=== PATIENT | male | born 1965 | race Caucasian/White ===

== ENCOUNTER 2017-10-11 23:17 | Inpatient (IN) | payer BC, MEDICARE ==
[~2017-10-11] VITALS: Ht 182.9 cm; Wt 106.0 kg
[2017-10-12] VITALS (14 sets, daily range): BP systolic 146–198; BP diastolic 65–92; PULSE 71–83; RESP 14–18; TEMP 97.6–98.9; O2SAT 96–99
[2017-10-12] MEDS ORDERED: ACETAMINOPHEN 325 MG TAB PO PRN (02:15)
[2017-10-12] MEDS ORDERED: BISACODYL 10 MG SUPP RECTAL PRN (02:15)
[2017-10-12] MEDS ORDERED: MISCELLANEOUS NURSING INFORMATION XX SCH (02:15)
[2017-10-12] MEDS ORDERED: MAGNESIUM HYDROXIDE SUSP 30 ML CUP PO PRN (02:15)
[2017-10-12] MEDS ORDERED: SENNOSIDES 8.6 MG TAB PO PRN (02:15)
[2017-10-12] MEDS ORDERED: LACTULOSE SYRUP 20 GM/30 ML CUP PO PRN (02:15)
[2017-10-12] MEDS ORDERED: SODIUM CHLORIDE 0.9% FLUSH 10 ML FLUSH IV FLUSH PRN ×2 (02:15→16:00)
[2017-10-12] MEDS ORDERED: MORPHINE SULFATE 2 MG/ML SYRINGE IV PUSH PRN (02:15)
[2017-10-12] MEDS ORDERED: TEMAZEPAM 15 MG CAP PO PRN (02:15)
[2017-10-12] MEDS ORDERED: ONDANSETRON HCL 4 MG/2 ML VIAL IV PUSH PRN (02:15)
[2017-10-12] MEDS ORDERED: CHLORHEXIDINE GLUCONATE 2 % 1 PACK (2 CLOTHS) TOP PRN (02:15)
[2017-10-12] MEDS ORDERED: cloNIDine HCL 0.3 MG TAB PO ONE (02:30)
[2017-10-12] MEDS ORDERED: LABETALOL HCL 100 MG/20 ML VIAL IV PUSH PRN (02:30)
[2017-10-12] MEDS: hydrALAZINE HCL 20 MG/ML VIAL IV PUSH PRN ×3 (02:51→13:59)
[2017-10-12] MEDS: HEPARIN SODIUM - SQ 10,000 UNITS/ML VIAL SQ SCH ×3 (02:51→18:31)
--- NOTE | 2017-10-12 03:47 | HHI.HP ---
HPI Service Critical Care Medicine Primary Care Physician Unknown Admission Diagnosis Diagnosis: Travel History International Travel<30 Days: No Contact w/Intl Traveler <30 Da: No Traveled to Known Affected Are: No History of Present Illness 52-year-old gentleman with history of end-stage renal disease on peritoneal dialysis, hypertension, depressions was brought to [facility] by Amanda after he told his that he wants to kill himself using the guns he has got at home. When he was brought to [facility] emergency department his blood pressure was found to be 204/110. Due to patient's need of hemodialysis and lack of paper cone grader at [facility] he was transferred here for higher level of care. Review of Systems Constitutional: DENIES: Diaphoretic episodes, Fatigue, Fever, Weight gain, Weight loss, Chills, Dizziness, Change in appetite, Night Sweats Endocrine: DENIES: Heat/cold intolerance, Polydipsia, Polyuria, Polyphagia Eyes: DENIES: Blurred vision, Diplopia, Eye inflammation, Eye pain, Vision loss , Photosensitivity, Double Vision Ears, nose, mouth, throat: DENIES: Tinnitus, Hearing loss, Vertigo, Nasal discharge, Oral lesions, Throat pain, Hoarseness, Ear Pain, Running Nose, Epistaxis, Sinus Pain, Toothache, Odynophagia Respiratory: DENIES: Apneas, Cough, Snoring, Wheezing, Hemoptysis, Sputum production, Shortness of breath Cardiovascular: DENIES: Chest pain, Palpitations, Syncope, Dyspnea on Exertion , PND, Lower Extremity Edema, Orthopnea, Claudication Gastrointestinal: DENIES: Abdominal pain, Black stools, Bloody stools, Constipation, Diarrhea, Nausea, Vomiting, Difficulty Swallowing, Anorexia Genitourinary: DENIES: Sexual dysfunction, Urinary frequency, Urinary incontinence, Urgency, Hematuria, Dysuria, Nocturia, Penile Discharge, Testicular Pain, Testicular Swelling Musculoskeletal: DENIES: Joint pain, Muscle aches, Stiffness, Joint Swelling, Back pain, Neck pain Integumentary: DENIES: Abnormal pigmentation, Nail changes, Pruritus, Rash Hematologic/lymphatic: DENIES: Bruising, Lymphadenopathy Immunologic/allergic: DENIES: Eczema, Urticaria Neurologic: DENIES: Abnormal gait, Headache, Localized weakness, Paresthesias, Seizures, Speech Problems, Tremor, Poor Balance Psychiatric: COMPLAINS OF: Mood changes, Depression, Suicidal Ideation, DENIES : Anxiety, Confusion, Hallucinations, Agitation, Homicidal Ideation, Delusions Past Family Social History Allergies: Coded Allergies: Penicillins (Verified Allergy, Mild, SKIN RASH, 10/12/17) Past Medical History End-stage renal disease on peritoneal dialysis Hypertension Depression Past Surgical History Peritoneal dialysis catheter placement Active Ordered Medications Current Medications Medications (Trade) Dose Ordered Sig/Ceasar Route PRN Reason Start Time Stop Time Status Last Admin Dose Admin Sodium Chloride (NS Flush) 2 ml UNSCH PRN IV FLUSH FLUSH AFTER USING IV ACCESS 10/12/17 02:15 Sodium Chloride (NS Flush) 2 ml BID IV FLUSH 10/12/17 09:00 Acetaminophen (Tylenol) 650 mg Q6H PRN PO PAIN 1-5 AND/OR FEVER >101F 10/12/17 02:15 Morphine Sulfate (Morphine Inj) 2 mg Q2H PRN IV PUSH PAIN SCALE 6 TO 10 10/12/17 02:15 Famotidine (Pepcid) 20 mg Q12HR PO 10/12/17 09:00 Ondansetron HCl (Zofran Inj) 4 mg Q6H PRN IV PUSH NAUSEA OR VOMITING 10/12/17 02:15 Temazepam (Restoril) 15 mg HS PRN PO INSOMNIA 10/12/17 02:15 Heparin Sodium (Porcine) (Heparin Inj) 5,000 units Q8H SQ 10/12/17 02:15 10/12/17 02:51 Miscellaneous Information 1 Q361D XX 10/12/17 02:15 Chlorhexidine Gluconate (Chlorhexidine 2% Cloth) 3 pack Taper DAILY@04 TOP 10/12/17 04:00 10/08/18 03:59 Chlorhexidine Gluconate (Chlorhexidine 2% Cloth) 3 pack UNSCH PRN TOP HYGIENIC CARE 10/12/17 02:15 Senna/Docusate Sodium (Felicity-Colace) 1 tab BID PO 10/12/17 09:00 Magnesium Hydroxide (Milk Of Magnesia Liq) 30 ml Q12H PRN PO Mild constipation 10/12/17 02:15 Sennosides (Senokot) 17.2 mg Q12H PRN PO Moderate constipation 10/12/17 02:15 Bisacodyl (Dulcolax Supp) 10 mg DAILY PRN RECTAL SEVERE CONSITIPATION/ IF NPO 10/12/17 02:15 Lactulose (Lactulose Liq) 30 ml DAILY PRN PO SEVERE CONSITIPATION/ IF PO 10/12/17 02:15 Hydralazine HCl (Apresoline Inj) 20 mg Q4H PRN IV PUSH SBP>160, DBP>90 10/12/17 02:30 10/12/17 02:51 Labetalol HCl (Trandate Inj) 10 mg Q4H PRN IV PUSH SBP>160, DBP>90 10/12/17 02:30 Family History No family history significant of cancer, mother has of dementia Social History Denies tobacco, alcohol, or illicit drug abuse Physical Exam Vital Signs Vital Signs Date Time Temp Pulse Resp B/P (MAP) Pulse Ox O2 Delivery O2 Flow Rate FiO2 10/12/17 03:00 98.9 83 15 155/73 (100) 99 Physical Exam GENERAL: Well-nourished, well-developed patient. SKIN: Warm and dry. HEAD: Normocephalic. EYES: No scleral icterus. No injection or drainage. NECK: Supple, trachea midline. No JVD or lymphadenopathy. CARDIOVASCULAR: Regular rate and rhythm without murmurs, gallops, or rubs. RESPIRATORY: Breath sounds equal bilaterally. No accessory muscle use. GASTROINTESTINAL: Abdomen soft, non-tender, nondistended. MUSCULOSKELETAL: No cyanosis, or edema. BACK: Nontender without obvious deformity. NEURO EXAM: GCS: 15 Mental Status: The patient is alert and oriented to person, place, and time with normal speech. Cranial Nerves: Visual acuity intact bilaterally. Visual gardner normal in all quadrants. Pupils are round, reactive to light. Extraocular movements are intact without ptosis. Hearing is normal bilaterally. Voice is normal. Tongue protrudes midline and moves symmetrically. Reflexes: Biceps, patellar, and Achilles are 2/4 bilaterally. No clonus. Sensation: Sensation is intact bilaterally to pain and light touch. Two-point discrimination is intact. Motor: Good muscle tone. Strength is 5/5 bilaterally. Cerebellar: [id number] and [id number] test normal bilaterally. Laboratory Laboratory Tests Test 10/12/17 01:35 Nasal Screen MRSA (PCR) MRSA NOT DETECTED Caprini VTE Risk Assessment Caprini VTE Risk Assessment: Mod/High Risk (score >= 2) Caprini Risk Assessment Model Point Value = 1 Point Value = 2 Point Value = 3 Point Value = 5 Age 41-60 Minor surgery BMI > 25 kg/m2 Swollen legs Varicose veins or History of unexplained or recurrent spontaneous Oral contraceptives or hormone replacement Sepsis (< 1 month) Serious lung disease, including pneumonia (< 1 month) Abnormal pulmonary function Acute myocardial infarction Congestive heart failure (< 1 month) History of inflammatory bowel disease Medical patient at bed rest Age 61-74 Arthroscopic surgery Major open surgery (> 45 min) Laparoscopic surgery (> 45 min) Malignancy Confined to bed (> 72 hours) Immobilizing plaster cast Central venous access Age >= 75 History of VTE Family history of VTE Factor V Leiden Prothrombin [id number] Lupus anticoagulant Anticardiolipin antibodies Elevated serum homocysteine Heparin-induced thrombocytopenia Other congenital or acquired thrombophilia Stroke (< 1 month) Elective arthroplasty Hip, pelvis, or leg fracture Acute spinal cord injury (< 1 month) Prophylaxis Regimen Total Risk Factor Score Risk Level Prophylaxis Regimen 0-1 Low Early ambulation 2 Moderate Order ONE of the following: *Sequential Compression Device (SCD) *Heparin 5000 units SQ BID 3-4 Higher Order ONE of the following medications: *Heparin 5000 units SQ TID *Enoxaparin/Lovenox 40 mg SQ daily (WT < 150 kg, CrCl > 30 mL/min) *Enoxaparin/Lovenox 30 mg SQ daily (WT < 150 kg, CrCl > 10-29 mL/min) *Enoxaparin/Lovenox 30 mg SQ BID (WT < 150 kg, CrCl > 30 mL/min) AND/OR *Sequential Compression Device (SCD) 5 or more Highest Order ONE of the following medications: *Heparin 5000 units SQ TID (Preferred with Epidurals) *Enoxaparin/Lovenox 40 mg SQ daily (WT < 150 kg, CrCl > 30 mL/min) *Enoxaparin/Lovenox 30 mg SQ daily (WT < 150 kg, CrCl > 10-29 mL/min) *Enoxaparin/Lovenox 30 mg SQ BID (WT < 150 kg, CrCl > 30 mL/min) AND *Sequential Compression Device (SCD) Assessment and Plan Assessment and Plan End-stage renal disease -Hemodialysis per nephrology Depressions with suicidal ideation -Admit to inpatient -Psychiatry evaluation Hypertension -Hydralazine -Labetalol -Clonidine -SBP goal less than 160 DVT GI prophylaxis -Jovan's and SCDs -Subcu heparin -Pepcid Critical Care: The total critical care time was 35 minutes. Time to perform other separately billable procedures was not included in the critical care time. Travis Camacho MD Oct 12, 2017 3:47 am
[2017-10-12] MEDS: CHLORHEXIDINE GLUCONATE 2 % 1 PACK (2 CLOTHS) TOP SCH ×2 (04:00→20:34)
[2017-10-12 04:54] LABS: AUTOMATED NEUTROPHIL # 3.6 TH/MM3 (1.8-7.7); BASOPHIL # 0.1 TH/MM3 (0-0.2); EOSINOPHIL # 0.1 TH/MM3 (0-0.4); EOSINOPHIL % 2.4 % (0.0-4.0); HEMATOCRIT 29.9 % (39.0-51.0); HEMOGLOBIN 10.1 GM/DL (13.0-17.0); LYMPHOCYTE # 0.9 TH/MM3 (1.0-4.8); MEAN CELL VOLUME 94.6 FL (80.0-100.0); MEAN CORPUSCULAR HGB CONC 33.8 % (32.0-36.0); MEAN PLATELET VOLUME 8.4 FL (7.0-11.0); MONO % 13.6 % (0.0-8.0); MONOCYTE # 0.7 TH/MM3 (0-0.9); PLATELET COUNT 154 TH/MM3 (150-450); RED BLOOD COUNT 3.16 MIL/MM3 (4.50-5.90); RED CELL DISTRIBUTION WIDTH 14.2 % (11.6-17.2); WHITE BLOOD COUNT 5.3 TH/MM3 (4.0-11.0)
[2017-10-12 05:26] LABS: ALBUMIN 2.9 GM/DL (3.4-5.0); ALT (GPT) 16 U/L (12-78); AST (GOT) 10 U/L (15-37); BICARBONATE 22.6 MEQ/L (21.0-32.0); BLOOD UREA NITROGEN 53 MG/DL (7-18); CALCIUM 7.7 MG/DL (8.5-10.1); CHLORIDE 106 MEQ/L (98-107); CREATININE 9.51 MG/DL (0.60-1.30); GLOMERULAR FILTRATION RATE 6 ML/MIN (>89); GLUCOSE,RANDOM 91 MG/DL (74-106); MAGNESIUM 2.4 MG/DL (1.5-2.5); PHOSPHORUS 6.8 MG/DL (2.5-4.9); SODIUM (NA) 139 MEQ/L (136-145)
[2017-10-12 05:28] LABS: ALKALINE PHOSPHATASE 50 U/L (45-117); TOTAL BILIRUBIN ADULT 0.5 MG/DL (0.2-1.0); TOTAL PROTEIN 5.8 GM/DL (6.4-8.2)
[2017-10-12] MEDS ORDERED: FAMOTIDINE 20 MG TAB PO SCH (09:00)
[2017-10-12] MEDS: DOCUSATE SODIUM 50 MG/SENNA 8.6 MG TAB PO SCH ×2 (09:32→20:33)
[2017-10-12] MEDS: SODIUM CHLORIDE 0.9% FLUSH 10 ML FLUSH IV FLUSH SCH ×2 (09:32→20:32)
[2017-10-12] MEDS: cloNIDine HCL 0.1 MG TAB PO PRN (13:59)
--- NOTE | 2017-10-12 15:40 | MB ---
cc: Lawanda Whitt MD DATE: 10/12/2017 REASON FOR CONSULTATION: End-stage renal disease on peritoneal dialysis for management. HISTORY OF PRESENT ILLNESS: This is a 52-year-old male with a past medical history of hypertension, history of depression, end-stage renal disease, on peritoneal dialysis, who was admitted when he was transferred from [facility] where he was admitted with ideation of . I was called to see the patient for the management of peritoneal dialysis. He has been on peritoneal dialysis for 6 months according to the patient, and he is following with a public relations in the area where he lives, which is close to [place]. He was admitted to [facility] because he told the that he wanted to kill himself using the gun and he is Wetzel Acted at present. The patient has no abdominal pain. Denies any shortness of breath, no chest pain, no palpitations, no nausea or vomiting. He is very anxious and could not sleep last night and asking for some anxiety medications. He does not have any nausea or vomiting. His appetite is normal. PAST MEDICAL HISTORY: Hypertension, end-stage renal disease, on peritoneal dialysis, history of depression. PAST SURGICAL HISTORY: History of PD catheter placement. REVIEW OF SYSTEMS: The patient denies any headache, dizziness or blurring of vision. No nausea, vomiting. No abdominal pain. No history of diarrhea. No dysuria, hematuria or difficulty passing urine. No shortness of breath. No chest pain. No palpitation. SOCIAL HISTORY: He is , lives with his . There is no history of smoking or alcoholism. FAMILY HISTORY: Noncontributory. ALLERGIES: PENICILLIN. MEDICATIONS: Currently, he is on following medications: Pepcid 10 mg q. 12 hours, Trandate 200 mg q. 12 hours, Apresoline 25 mg q. 12 hours, PhosLo 667 mg t.i.d., Tylenol, morphine, Restoril as needed. PHYSICAL EXAMINATION: GENERAL: The patient is awake, alert, sitting in the chair, not in acute distress. VITAL SIGNS: His last blood pressure is 146/65, temperature is 98.7, oxygen saturation is 99% on room air. HEENT: Pupils equally reacting to light, nonicteric sclerae, conjunctivae pale. NECK: Supple. JVD is not elevated. LUNGS: The patient has bilateral good air entry with no wheezing. HEART: S1, S2. Regular rhythm. ABDOMEN: Distended, soft, lax. The PD catheter in place. There is no tenderness. EXTREMITIES: He has mild edema in the legs. INVESTIGATIONS: WBC count is 5.3, hemoglobin 10.1, platelet count of 154, neutrophils 67%. Sodium 139, potassium 4.5, chloride 106, bicarbonate 22.6, BUN 53, creatinine 9.5, calcium 7.7 with phosphorus of 6.8, AST is 10, ALT is 16, total protein is 5.8 with albumin of 2.9. ASSESSMENT AND PLAN: 1. Depression with suicidal ideation. 2. End-stage renal disease, on peritoneal dialysis. 3. Hypertension. 4. Mild anemia. The patient has been on peritoneal dialysis. According to him, he is doing 2 of 5 L bag and 2.5%, so we will put him back on his same prescription. I have already called the on-call dialysis to come and hook him up, but the was concerned about some discharge at the PD catheter site, so I will have the PD nurse look into it and do the culture if needed. Awaiting psychiatry to evaluate the patient. Currently, he is Wetzel Acted. I will increase his PhosLo to 2 t.i.d. since his phosphorus is high. Thank you for the consultation. MD SHANA Pederson/MAXIMILIAN , 03:19 PM , 03:39 PM
[2017-10-12] MEDS ORDERED: HEPARIN SODIUM - IV 10,000 UNITS/10 ML VIAL XX PRN (16:00)
--- NOTE | 2017-10-12 16:34 | PD.PSY.CON ---
Provisional Diagnosis Admission Date Oct 12, 2017 at 01:15 [employer] [place]. Major depression single episode severe without psychosis History of Present Illness Service Psychiatry Consult Requested By Attending Winifred. Reason for Consult Assessment Wetzel act Primary Care Physician Unknown HPI Issues a 52-year-old white male was transferred here from [facility] for peritoneal dialysis. He also comes here under Wetzel act due to suicidal ideation and perhaps intent tentatively get into his gun cabinet, driving off quite angry being followed by his daughter. There also appears to be an episode similar to this in the past year or so. Patient seen today in his room with nurse and sitter. He is an alert oriented calm white male sitting in the chair beside his bed. He does acknowledge a sad mood with depressed feelings, he does describe initial and mid insomnia with decreased energy some vague crying spells, decreased appetite, some decreased attention and concentration with some increased irritability. He denies voices or visions with this. Denies alcohol or drug use with this. Has had suicidal ideation. He also ascribes some of the above depressive symptoms to the significant issues with his kidneys and his dialysis. He denies prior psychiatric contact hospitalization her psychotropic medication. He denies any mental illness in the family. He denies any her of alcohol or other drug use. He lives with his and he has 2 adult children. They appear to be a close family. The patient times feels lonely somewhat better frustrated at his inability to be employed to be as independent as he once was. He shown an initial reluctance to discuss antidepressants however after some talking and explaining patient is willing to have her trial of an antidepressant. I feel this man does suffer from major depression with question antidepressant would be appropriate to start him on Lexapro 10 mg daily. At this time I think would be prudent to continue also with a sitter. Patient consult will continue to follow, once the patient has been medically cleared within address the issue of what to do with the Wetzel act Review of Systems Except as stated in HPI: all other systems reviewed are Neg Past Family Social History Coded Allergies: Penicillins (Verified Allergy, Mild, SKIN RASH, 10/12/17) Current Medications Medications (Trade) Dose Ordered Sig/Ceasar Route Start Time Stop Time Status Last Admin (NS Flush) 2 ml UNSCH PRN IV FLUSH 10/12/17 02:15 (NS Flush) 2 ml BID IV FLUSH 10/12/17 09:00 10/12/17 09:32 (Tylenol) 650 mg Q6H PRN PO 10/12/17 02:15 (Morphine Inj) 2 mg Q2H PRN IV PUSH 10/12/17 02:15 (Zofran Inj) 4 mg Q6H PRN IV PUSH 10/12/17 02:15 (Restoril) 15 mg HS PRN PO 10/12/17 02:15 (Heparin Inj) 5,000 units Q8H SQ 10/12/17 02:15 10/12/17 09:32 Miscellaneous Information 1 Q361D XX 10/12/17 02:15 (Chlorhexidine 2% Cloth) 3 pack Taper DAILY@04 TOP 10/12/17 04:00 10/08/18 03:59 (Chlorhexidine 2% Cloth) 3 pack UNSCH PRN TOP 10/12/17 02:15 (Felicity-Colace) 1 tab BID PO 10/12/17 09:00 10/12/17 09:32 (Milk Of Magnesia Liq) 30 ml Q12H PRN PO 10/12/17 02:15 (Senokot) 17.2 mg Q12H PRN PO 10/12/17 02:15 (Dulcolax Supp) 10 mg DAILY PRN RECTAL 10/12/17 02:15 (Lactulose Liq) 30 ml DAILY PRN PO 10/12/17 02:15 (Apresoline Inj) 20 mg Q4H PRN IV PUSH 10/12/17 02:30 10/12/17 13:59 (Trandate Inj) 10 mg Q4H PRN IV PUSH 10/12/17 02:30 (Flu (Quadrivalent) Vaccine Inj) 0.5 ml ONCE ONCE IM 10/13/17 10:00 10/13/17 10:01 (Pepcid) 10 mg Q12HR PO 10/12/17 21:00 (Trandate) 200 mg Q12HR PO 10/12/17 21:00 (Apresoline) 25 mg Q12HR PO 10/12/17 21:00 (Catapres) 0.1 mg Q6H PRN PO 10/12/17 13:45 10/12/17 13:59 (Phoslo) 1,334 mg TID PO 10/12/17 18:00 (Heparin Inj) 1,000 units WITH DIALYSIS PRN XX 10/12/17 16:00 (NS Flush) 10 ml UNSCH PRN IV FLUSH 10/12/17 16:00 Family Psych History Patient denies Social History Patient lives with and 2 children Patient's Strengths (min. 2) Patient verbal able access healthcare cooperative Physical Exam Please see MedSurg assessments Vital Signs Vital Signs Date Time Temp Pulse Resp B/P (MAP) Pulse Ox O2 Delivery O2 Flow Rate FiO2 10/12/17 15:00 72 10/12/17 07:00 99 Room Air 10/12/17 04:00 98.7 15 146/65 (92) I/O 10/12/17 10/12/17 10/13/17 08:00 16:00 00:00 Intake Total 50 ml Balance 50 ml Lab Results Test 10/12/17 01:35 10/12/17 04:30 Nasal Screen MRSA (PCR) MRSA NOT DETECTED White Blood Count 5.3 TH/MM3 Red Blood Count 3.16 MIL/MM3 Hemoglobin 10.1 GM/DL Hematocrit 29.9 % Mean Corpuscular Volume 94.6 FL Mean Corpuscular Hemoglobin 32.0 PG Mean Corpuscular Hemoglobin Concent 33.8 % Red Cell Distribution Width 14.2 % Platelet Count 154 TH/MM3 Mean Platelet Volume 8.4 FL Neutrophils (%) (Auto) 67.0 % Lymphocytes (%) (Auto) 16.0 % Monocytes (%) (Auto) 13.6 % Eosinophils (%) (Auto) 2.4 % Basophils (%) (Auto) 1.0 % Neutrophils # (Auto) 3.6 TH/MM3 Lymphocytes # (Auto) 0.9 TH/MM3 Monocytes # (Auto) 0.7 TH/MM3 Eosinophils # (Auto) 0.1 TH/MM3 Basophils # (Auto) 0.1 TH/MM3 CBC Comment DIFF FINAL Differential Comment Blood Urea Nitrogen 53 MG/DL Creatinine 9.51 MG/DL Random Glucose 91 MG/DL Total Protein 5.8 GM/DL Albumin 2.9 GM/DL Calcium Level 7.7 MG/DL Phosphorus Level 6.8 MG/DL Magnesium Level 2.4 MG/DL Alkaline Phosphatase 50 U/L Aspartate Amino Transf (AST/SGOT) 10 U/L Alanine Aminotransferase (ALT/SGPT) 16 U/L Total Bilirubin 0.5 MG/DL Sodium Level 139 MEQ/L Potassium Level 4.5 MEQ/L Chloride Level 106 MEQ/L Carbon Dioxide Level 22.6 MEQ/L Anion Gap 10 MEQ/L Estimat Glomerular Filtration Rate 6 ML/MIN Mental Status Examination Appearance: Appropriate Consciousness: Alert Orientation: x4 Motor Activity: Normal gait Speech: Unremarkable Language: Adequate Fund of Knowledge: Adequate Attention and Concentration: Adequate Memory: Unremarkable Mood: Other (euthymic to moderately dysphoric) Affect: Other (decrease range intensity) Thought Process & Associations: Intact, Logical Thought Content: Appropriate Hallucination Type: None Delusion Type: None Suicidal Ideation: Yes (patient vague) Suicidal Plan: Yes Suicidal Intention: Yes (patient vague) Homicidal Ideation: No Homicidal Plan: No Homicidal Intention: No Insight: Fair Judgment: Impulsive Assessment & Plan Problem List: (1) Severe major depression, single episode, without psychotic features ICD Codes: F32.2 - Major depressive disorder, single episode, severe without psychotic features Assessment & Plan Estimated LOS: days this time I would recommend initiation of Lexapro 10 mg daily. We'll continue to observe and monitor related to the extension of the Wetzel act Discharge Planning To be determined Request HC Surrog/Guard Advoc?: No Vincenzo Boyd MD Oct 12, 2017 16:34
[2017-10-12] MEDS ORDERED: CALCIUM ACETATE 667 MG CAP PO SCH (18:00)
[2017-10-12] MEDS: CALCIUM ACETATE 667 MG CAP PO SCH (18:30)
[2017-10-12] MEDS: LABETALOL HCL 200 MG TAB PO SCH (20:33)
[2017-10-12] MEDS: hydrALAZINE HCL 25 MG TAB PO SCH (20:33)
[2017-10-12] MEDS: FAMOTIDINE 20 MG TAB PO SCH (20:34)
[2017-10-13] VITALS (7 sets, daily range): BP systolic 159–218; BP diastolic 81–102; PULSE 64–85; RESP 16–22; TEMP 97–97.9; O2SAT 96–99
[2017-10-13] MEDS: cloNIDine HCL 0.1 MG TAB PO PRN ×2 (00:05→12:26)
[2017-10-13] MEDS: HEPARIN SODIUM - SQ 10,000 UNITS/ML VIAL SQ SCH ×3 (02:15→16:59)
[2017-10-13 03:48] LABS: AUTOMATED NEUTROPHIL # 2.6 TH/MM3 (1.8-7.7); BASOPHIL # 0.1 TH/MM3 (0-0.2); BASOPHIL % 1.4 % (0.0-2.0); EOSINOPHIL # 0.1 TH/MM3 (0-0.4); EOSINOPHIL % 2.5 % (0.0-4.0); HEMATOCRIT 31.2 % (39.0-51.0); HEMOGLOBIN 10.5 GM/DL (13.0-17.0); LYMPH % 15.8 % (9.0-44.0); LYMPHOCYTE # 0.6 TH/MM3 (1.0-4.8); MEAN CELL VOLUME 93.9 FL (80.0-100.0); MEAN CORPUSCULAR HEMOGLOBIN 31.6 PG (27.0-34.0); MEAN CORPUSCULAR HGB CONC 33.6 % (32.0-36.0); MEAN PLATELET VOLUME 8.7 FL (7.0-11.0); MONO % 15.4 % (0.0-8.0); MONOCYTE # 0.6 TH/MM3 (0-0.9); NEUT % 64.9 % (16.0-70.0); PLATELET COUNT 159 TH/MM3 (150-450); RED BLOOD COUNT 3.33 MIL/MM3 (4.50-5.90); RED CELL DISTRIBUTION WIDTH 14.2 % (11.6-17.2)
[2017-10-13 04:00] LABS: INTERNATIONAL NORMALIZED RATIO 1.1 RATIO; PROTHROMBIN TIME - PATIENT 10.8 SEC (9.8-11.6)
[2017-10-13 04:09] LABS: ALT (GPT) 16 U/L (12-78); AST (GOT) 10 U/L (15-37); BICARBONATE 25.3 MEQ/L (21.0-32.0); BLOOD UREA NITROGEN 62 MG/DL (7-18); CALCIUM 8.1 MG/DL (8.5-10.1); CHLORIDE 104 MEQ/L (98-107); CREATININE 9.97 MG/DL (0.60-1.30); GLOMERULAR FILTRATION RATE 6 ML/MIN (>89); GLUCOSE,RANDOM 137 MG/DL (74-106); MAGNESIUM 2.5 MG/DL (1.5-2.5); PHOSPHORUS 7.7 MG/DL (2.5-4.9); SODIUM (NA) 138 MEQ/L (136-145)
[2017-10-13 04:18] LABS: ALKALINE PHOSPHATASE 53 U/L (45-117); FREE T4 1.11 NG/DL (0.76-1.46); TOTAL BILIRUBIN ADULT 0.5 MG/DL (0.2-1.0); TOTAL PROTEIN 6.2 GM/DL (6.4-8.2)
[2017-10-13] MEDS: FAMOTIDINE 20 MG TAB PO SCH ×2 (08:16→20:23)
[2017-10-13] MEDS: DOCUSATE SODIUM 50 MG/SENNA 8.6 MG TAB PO SCH ×2 (08:17→20:23)
[2017-10-13] MEDS: LABETALOL HCL 200 MG TAB PO SCH ×2 (08:18→20:21)
[2017-10-13] MEDS: CALCIUM ACETATE 667 MG CAP PO SCH ×3 (08:18→16:57)
[2017-10-13] MEDS: ESCITALOPRAM OXALATE 10 MG TAB PO SCH (08:18)
[2017-10-13] MEDS: hydrALAZINE HCL 25 MG TAB PO SCH ×2 (08:18→20:22)
[2017-10-13] MEDS: SODIUM CHLORIDE 0.9% FLUSH 10 ML FLUSH IV FLUSH SCH ×2 (08:29→20:22)
--- NOTE | 2017-10-13 09:14 | HHI.PR ---
Subjective Remarks in no acute distress. resting comfortably. no suicidal thoughts. overall feeling better. Objective Vitals Vital Signs Date Time Temp Pulse Resp B/P (MAP) Pulse Ox O2 Delivery O2 Flow Rate FiO2 10/13/17 08:00 97.0 80 18 176/98 (124) 98 10/13/17 03:07 97.5 85 20 159/81 (107) 97 10/13/17 00:32 97.7 66 22 180/94 (122) 96 10/13/17 00:00 66 10/12/17 21:54 72 10/12/17 20:33 97.6 72 18 198/92 (127) 98 10/12/17 18:00 71 10/12/17 16:00 98.1 78 18 160/85 (110) 98 10/12/17 16:00 71 10/12/17 15:00 72 10/12/17 14:00 71 10/12/17 12:00 72 10/12/17 12:00 97.6 72 14 151/71 (97) 96 10/12/17 10:00 78 I/O 10/12/17 10/12/17 10/12/17 10/13/17 10/13/17 10/13/17 07:00 15:00 23:00 07:00 15:00 23:00 Intake Total 50 ml 360 ml 480 ml Output Total 1037 ml Balance 50 ml 360 ml 480 ml -1037 ml Intake Oral 50 ml 360 ml 480 ml Output Peritoneal Fluid 1037 ml # Voids 5 2 # Bowel Movements 2 Result Diagram: 10/13/175 10/13/17 0315 Objective Remarks GENERAL: This is a well-nourished, well-developed patient, in no apparent distress. CARDIOVASCULAR: Regular rate and regular rhythm without murmurs, gallops, or rubs. RESPIRATORY: Clear to auscultation. Breath sounds equal bilaterally. No wheezes , rales, or rhonchi. GASTROINTESTINAL: Abdomen soft, non-tender, nondistended. Normal, active bowel sounds MUSCULOSKELETAL: Extremities without clubbing, cyanosis, or edema. NEURO: Alert & Oriented x4 to person, place, time, situation. Moves all ext x4 Medications and IVs Inpatient Medications Acetaminophen (Tylenol) 650 mg Q6H PRN PO PAIN 1-5 AND/OR FEVER >101F; Start at 02:15 Bisacodyl (Dulcolax Supp) 10 mg DAILY PRN RECTAL SEVERE CONSITIPATION/ IF NPO; Start 10/12/17 at 02:15 Calcium Acetate (Phoslo) 1,334 mg TID PO Last administered on 10/13/17at 08:18; Start 10/12/17 at 18:00 Chlorhexidine Gluconate (Chlorhexidine 2% Cloth) 3 pack UNSCH PRN TOP HYGIENIC CARE; Start 10/12/17 at 02:15 Clonidine (Catapres) 0.1 mg Q6H PRN PO SBP>180, DBP>100, HR>65 Last administered on 10/13/17at 00:05; Start 10/12/17 at 13:45 Escitalopram Oxalate (Lexapro) 10 mg DAILY PO Last administered on 10/13/17at 08: 18; Start 10/13/17 at 09:00 Famotidine (Pepcid) 10 mg Q12HR PO ; Start 10/12/17 at 21:00 Heparin Sodium (Porcine) (Heparin Inj) 1,000 units WITH DIALYSIS PRN XX SEE LABEL COMMENTS; Start 10/12/17 at 16:00 Hydralazine HCl (Apresoline Inj) 20 mg Q4H PRN IV PUSH SBP>160, DBP>90 Last administered on 10/12/17at 13:59; Start 10/12/17 at 02:30 Hydralazine HCl (Apresoline) 25 mg Q12HR PO Last administered on 10/13/17at 08:18 ; Start 10/12/17 at 21:00 Influenza Virus Vaccine (Flu (Quadrivalent) Vaccine Inj) 0.5 ml ONCE ONCE IM ; Start 10/13/17 at 10:00; Stop 10/13/17 at 10:01 Labetalol HCl (Trandate Inj) 10 mg Q4H PRN IV PUSH SBP>160, DBP>90; Start at 02:30 Labetalol HCl (Trandate) 200 mg Q12HR PO Last administered on 10/13/17at 08:18; Start 10/12/17 at 21:00 Lactulose (Lactulose Liq) 30 ml DAILY PRN PO SEVERE CONSITIPATION/ IF PO; Start 10/12/17 at 02:15 Magnesium Hydroxide (Milk Of Magnesia Liq) 30 ml Q12H PRN PO Mild constipation ; Start 10/12/17 at 02:15 Miscellaneous Information 1 Q361D XX ; Start 10/12/17 at 02:15 Morphine Sulfate (Morphine Inj) 2 mg Q2H PRN IV PUSH PAIN SCALE 6 TO 10; Start 10/12/17 at 02:15 Ondansetron HCl (Zofran Inj) 4 mg Q6H PRN IV PUSH NAUSEA OR VOMITING; Start 10/12/17 at 02:15 Senna/Docusate Sodium (Felicity-Colace) 1 tab BID PO Last administered on 10/12/17at 09:32; Start 10/12/17 at 09:00 Sennosides (Senokot) 17.2 mg Q12H PRN PO Moderate constipation; Start 10/12/17 at 02:15 Sodium Chloride (NS Flush) 10 ml UNSCH PRN IV FLUSH SEE LABEL COMMENTS; Start 10/12/17 at 16:00 Temazepam (Restoril) 15 mg HS PRN PO INSOMNIA; Start 10/12/17 at 02:15 A/P Assessment and Plan A/P End-stage renal disease -peritoneal dialysis per nephrology Depressions with suicidal ideation -Psychiatry evaluation appreciated; started on Lexapro -awaiting follow-up and recommendations. Hypertension -Hydralazine -Labetalol -Clonidine -SBP goal less than 160 DVT GI prophylaxis -Jovan's and SCDs -Subcu heparin -Pepcid Discharge Planning awaiting psych follow-up and recommendations. Jannette Dutton MD Oct 13, 2017 09:14
--- NOTE | 2017-10-13 09:35 | HHI.NPPN ---
Subjective General Problems: Anemia Renal Failure: End Stage Renal Disease History of Present Illness This is a 52-year-old male with a past medical history of hypertension, history of depression, end-stage renal disease, on peritoneal dialysis, who was admitted when he was [facility] was admitted with ideation of .Nephrology was called to see the patient for the management of peritoneal dialysis. He has been on peritoneal dialysis for 6 months according to the patient, and he is following with a scrap hooker in the area where he lives, which is close to [place]. He was admitted to [facility] because he told the that he wanted to kill himself using the gun and he is Wetzel Acted at present. The patient has no abdominal pain. Denies any shortness of breath, no chest pain,no palpitations, no nausea or vomiting. He is very anxious and could not sleep last night and asking for some anxiety medications. He does not have any nausea or vomiting. His appetite is normal Additional Remarks Patient is sitting up eating breakfast. No complaints. (Becca Ching) Review of Systems Respiratory Respiratory Remarks Denies any SOB (Becca Ching) Cardiovascular Cardiac Remarks Denies CP (Becca Ching) Gastrointestinal GI Remarks Denies any abdominal pain (Becca Ching) Objective Data Data 10/13/17 10/14/17 19:00 07:00 Output Total 1037 ml Balance -1037 ml Output Peritoneal Fluid 1037 ml Vital Signs Date Time Temp Pulse Resp B/P (MAP) Pulse Ox O2 Delivery O2 Flow Rate FiO2 10/13/17 08:00 97.0 80 18 176/98 (124) 98 10/13/17 03:07 97.5 85 20 159/81 (107) 97 10/13/17 00:32 97.7 66 22 180/94 (122) 96 10/13/17 00:00 66 10/12/17 21:54 72 10/12/17 20:33 97.6 72 18 198/92 (127) 98 10/12/17 18:00 71 10/12/17 16:00 98.1 78 18 160/85 (110) 98 10/12/17 16:00 71 10/12/17 15:00 72 10/12/17 14:00 71 10/12/17 12:00 72 10/12/17 12:00 97.6 72 14 151/71 (97) 96 10/12/17 10:00 78 (Becca Ching) -: 10/13/17 0315 10/13/17 0315 Physical Exam General Appearance: Well Nourished, No Acute Distress, Comfortable (Becca Ching) Eyes Eye Exam: Pupils Equal (Becca Ching) Throat Throat Exam: Oral Mucosa [place] & Moist (Becca Ching) Pulmonary Resp Exam: Breath Sounds Equal, No Distress (Becca Ching) Cardiology CV Exam: Regular, Normal Sinus Rhythm (Becca Ching) Gastrointestinal/Abdomen GI Exam: Soft, Non-Tender, Bowel Sounds Present GI Remarks PD catheter (Becca Ching) Genitourinary Exam: Flank Non-Tender (Becca Ching) Integumentary Skin Exam: Clear, Warm, Dry (Becca Ching) Extremeties Extremities Exam: No Edema (Becca Ching) Neurologic Neuro Exam: Alert, Awake, Oriented (Becca Ching) Psychiatric Psych Exam: Appropriate Responses (Becca Ching) Assessment/Plan Discussed Condition With: Patient Assessment Summary: Anemia of CKD, End Stage Renal Disease Problem List: (1) ESRD on peritoneal dialysis ICD Codes: N18.6 - End stage renal disease; Z99.2 - Dependence on renal dialysis Plan: ESRD on Peritoneal dialysis. He is doing 2 of 5 L bag and 2.5% Plan PD last night with 1 liter removed. Continue PD nightly Continue Phoslo (2) HTN (hypertension) ICD Codes: I10 - Essential (primary) hypertension Plan: Patient is HTN will increase hydralazine (3) Severe major depression, single episode, without psychotic features ICD Codes: F32.2 - Major depressive disorder, single episode, severe without psychotic features Plan: Wetzel act followed by Psych (Becca Ching) Problem List: (1) ESRD on peritoneal dialysis ICD Codes: N18.6 - End stage renal disease; Z99.2 - Dependence on renal dialysis Plan: ESRD on Peritoneal dialysis. He is doing 2 of 5 L bag and 2.5% Plan PD last night with 1 liter removed. Continue PD nightly Continue Phoslo Patient seen and examined, agree with above. Po4 was high, Phoslo increased yesterday. Psychiatry consult noted. (2) HTN (hypertension) ICD Codes: I10 - Essential (primary) hypertension Plan: Patient is HTN will increase hydralazine (3) Severe major depression, single episode, without psychotic features ICD Codes: F32.2 - Major depressive disorder, single episode, severe without psychotic features Plan: Wetzel act followed by Psych (Alex Whitt MD) Becca Ching Oct 13, 2017 09:35 Alex Whitt MD Oct 13, 2017 17:52
[2017-10-13] MEDS ORDERED: INFLUENZA VIRUS VACCINE (QUADRIVALENT) 0.5 ML SYR IM ONE (10:00)
[2017-10-13] MEDS ORDERED: ESCI10TA PO (13:55)
[2017-10-13 16:40] LABS: HEMOGLOBIN A1C 5.4 % (4.3-6.0)
[2017-10-13] MEDS ORDERED: LABE300T PO (16:52)
[2017-10-13] MEDS ORDERED: HYDR-3799 PO (16:53)
[2017-10-13] MEDS ORDERED: LISI-515 PO (16:54)
[2017-10-13] MEDS ORDERED: NIFEdipine 30 MG SUSTAINED RELEASE TAB PO ONE (17:00)
[2017-10-14] VITALS: BP 135/62; PULSE 84; RESP 18; TEMP 98.1; O2SAT 97
[2017-10-14 00:18] VITALS: PULSE 72
[2017-10-14] MEDS: HEPARIN SODIUM - SQ 10,000 UNITS/ML VIAL SQ SCH ×2 (02:15→09:03)
[2017-10-14] MEDS: CHLORHEXIDINE GLUCONATE 2 % 1 PACK (2 CLOTHS) TOP SCH (04:00)
[2017-10-14 08:00] VITALS: BP 149/72; PULSE 88; RESP 18; TEMP 98.1; O2SAT 99
--- NOTE | 2017-10-14 08:50 | HHI.NPPN ---
Subjective General Problems: Anemia Renal Failure: End Stage Renal Disease History of Present Illness This is a 52-year-old male with a past medical history of hypertension, history of depression, end-stage renal disease, on peritoneal dialysis, who was admitted when he was transferred from [facility] where he was admitted with ideation of .Nephrology was called to see the patient for the management of peritoneal dialysis. He has been on peritoneal dialysis for 6 months according to the patient, and he is following with a mainframe systems administrator in the area where he lives, which is close to [place]. He was admitted to [facility] because he told the that he wanted to kill himself using the gun and he is Wetzel Acted at present. The patient has no abdominal pain. Denies any shortness of breath, no chest pain,no palpitations, no nausea or vomiting. He is very anxious and could not sleep last night and asking for some anxiety medications. He does not have any nausea or vomiting. His appetite is normal Additional Remarks Patient eating breakfast. No complaints PD last night. (Becca Ching) Review of Systems Respiratory Respiratory Remarks Denies any SOB (Becca Ching) Cardiovascular Cardiac Remarks Denies CP (Becca Ching) Gastrointestinal GI Remarks Denies any abdominal pain (Becca Ching) Objective Data Data Vital Signs Date Time Temp Pulse Resp B/P (MAP) Pulse Ox O2 Delivery O2 Flow Rate FiO2 10/14/17 08:00 98.1 88 18 149/72 (97) 99 10/14/17 00:18 72 10/14/17 00:00 98.1 84 18 135/62 (86) 97 10/13/17 20:00 97.7 64 18 218/102 (140) 98 10/13/17 16:00 97.6 64 18 197/92 (127) 96 199/99 (132) 10/13/17 12:00 97.9 64 16 190/87 (121) 99 (Becca Ching) -: 10/13/17 0315 10/13/17 0315 Physical Exam General Appearance: Well Nourished, No Acute Distress, Comfortable (Becca Ching) Eyes Eye Exam: Pupils Equal (Becca Ching) Throat Throat Exam: Oral Mucosa [place] & Moist (Becca Ching) Pulmonary Resp Exam: Breath Sounds Equal, No Distress (Becca Ching) Cardiology CV Exam: Regular, Normal Sinus Rhythm (Becca Ching) Gastrointestinal/Abdomen GI Exam: Soft, Non-Tender, Bowel Sounds Present GI Remarks PD catheter (Becca Ching) Genitourinary Exam: Flank Non-Tender (Becca Ching) Integumentary Skin Exam: Clear, Warm, Dry (Becca Ching) Extremeties Extremities Exam: No Edema (Becca Ching) Neurologic Neuro Exam: Alert, Awake, Oriented (Becca Ching) Psychiatric Psych Exam: Appropriate Responses (Becca Ching) Assessment/Plan Discussed Condition With: Patient Assessment Summary: Anemia of CKD, End Stage Renal Disease Problem List: (1) ESRD on peritoneal dialysis ICD Codes: N18.6 - End stage renal disease; Z99.2 - Dependence on renal dialysis Plan: ESRD on Peritoneal dialysis. He is doing 2 of 5 L bag and 2.5% Plan Continue PD nightly Po4 was high, Phoslo has been increased Psychiatry consult noted. (2) HTN (hypertension) ICD Codes: I10 - Essential (primary) hypertension Plan: HTN improved. (3) Severe major depression, single episode, without psychotic features ICD Codes: F32.2 - Major depressive disorder, single episode, severe without psychotic features Plan: Wetzel act followed by Psych On lexapro (Becca Ching) Problem List: (1) ESRD on peritoneal dialysis ICD Codes: N18.6 - End stage renal disease; Z99.2 - Dependence on renal dialysis Plan: ESRD on Peritoneal dialysis. He is doing 2 of 5 L bag and 2.5% Plan Continue PD nightly Po4 was high, Phoslo has been increased Psychiatry consult noted. Patient seen and examined, agree with above. Transferred to Psych. now. Continue APD. (2) HTN (hypertension) ICD Codes: I10 - Essential (primary) hypertension Plan: HTN improved. (3) Severe major depression, single episode, without psychotic features ICD Codes: F32.2 - Major depressive disorder, single episode, severe without psychotic features Plan: Wetzel act followed by Psych On lexapro (Alex Whitt MD) Becca Ching Oct 14, 2017 08:50 Alex Whitt MD Oct 14, 2017 18:33
[2017-10-14] MEDS: FAMOTIDINE 20 MG TAB PO SCH (08:56)
[2017-10-14] MEDS: DOCUSATE SODIUM 50 MG/SENNA 8.6 MG TAB PO SCH (08:56)
[2017-10-14] MEDS: LABETALOL HCL 200 MG TAB PO SCH (08:57)
[2017-10-14] MEDS: CALCIUM ACETATE 667 MG CAP PO SCH ×2 (08:57→12:00)
[2017-10-14] MEDS: ESCITALOPRAM OXALATE 10 MG TAB PO SCH (08:58)
[2017-10-14] MEDS: hydrALAZINE HCL 25 MG TAB PO SCH (08:58)
[2017-10-14] MEDS: SODIUM CHLORIDE 0.9% FLUSH 10 ML FLUSH IV FLUSH SCH (08:59)
--- NOTE | 2017-10-14 09:56 | HHI.PR ---
Subjective Remarks in no acute distress. denies pain. no new complaints. Objective Vitals Vital Signs Date Time Temp Pulse Resp B/P (MAP) Pulse Ox O2 Delivery O2 Flow Rate FiO2 10/14/17 08:00 98.1 88 18 149/72 (97) 99 10/14/17 00:18 72 10/14/17 00:00 98.1 84 18 135/62 (86) 97 10/13/17 20:00 97.7 64 18 218/102 (140) 98 10/13/17 16:00 97.6 64 18 197/92 (127) 96 199/99 (132) 10/13/17 12:00 97.9 64 16 190/87 (121) 99 I/O 10/13/17 10/13/17 10/13/17 10/14/17 10/14/17 10/14/17 07:00 15:00 23:00 07:00 15:00 23:00 Intake Total 480 ml 2200 ml Output Total 1037 ml Balance 480 ml -1037 ml 2200 ml Intake Oral 480 ml 2200 ml Output Peritoneal Fluid 1037 ml # Voids 2 6 # Bowel Movements 2 0 Result Diagram: 10/13/17 0315 10/13/17 0315 Objective Remarks GENERAL: This is a well-nourished, well-developed patient, in no apparent distress. CARDIOVASCULAR: Regular rate and regular rhythm without murmurs, gallops, or rubs. RESPIRATORY: Clear to auscultation. Breath sounds equal bilaterally. No wheezes , rales, or rhonchi. GASTROINTESTINAL: Abdomen soft, non-tender, nondistended. Normal, active bowel sounds MUSCULOSKELETAL: Extremities without clubbing, cyanosis, or edema. NEURO: Alert & Oriented x4 to person, place, time, situation. Moves all ext x4 Medications and IVs Inpatient Medications Acetaminophen (Tylenol) 650 mg Q6H PRN PO PAIN 1-5 AND/OR FEVER >101F; Start at 02:15 Bisacodyl (Dulcolax Supp) 10 mg DAILY PRN RECTAL SEVERE CONSITIPATION/ IF NPO; Start 10/12/17 at 02:15 Calcium Acetate (Phoslo) 1,334 mg TID PO Last administered on 10/14/17at 08:57; Start 10/12/17 at 18:00 Chlorhexidine Gluconate (Chlorhexidine 2% Cloth) 3 pack UNSCH PRN TOP HYGIENIC CARE; Start 10/12/17 at 02:15 Clonidine (Catapres) 0.1 mg Q6H PRN PO SBP>180, DBP>100, HR>65 Last administered on 10/13/17at 12:26; Start 10/12/17 at 13:45 Escitalopram Oxalate (Lexapro) 10 mg DAILY PO Last administered on 10/14/17at 08: 58; Start 10/13/17 at 09:00 Famotidine (Pepcid) 10 mg Q12HR PO ; Start 10/12/17 at 21:00 Heparin Sodium (Porcine) (Heparin Inj) 1,000 units WITH DIALYSIS PRN XX SEE LABEL COMMENTS; Start 10/12/17 at 16:00 Hydralazine HCl (Apresoline Inj) 20 mg Q4H PRN IV PUSH SBP>160, DBP>90 Last administered on 10/12/17at 13:59; Start 10/12/17 at 02:30 Hydralazine HCl (Apresoline) 50 mg Q12HR PO Last administered on 10/14/17at 08:58 ; Start 10/13/17 at 21:00 Influenza Virus Vaccine (Flu (Quadrivalent) Vaccine Inj) 0.5 ml ONCE ONCE IM ; Start 10/13/17 at 10:00; Stop 10/13/17 at 10:01; Status DC Labetalol HCl (Trandate Inj) 10 mg Q4H PRN IV PUSH SBP>160, DBP>90; Start at 02:30 Labetalol HCl (Trandate) 200 mg Q12HR PO Last administered on 10/14/17at 08:57; Start 10/12/17 at 21:00 Lactulose (Lactulose Liq) 30 ml DAILY PRN PO SEVERE CONSITIPATION/ IF PO; Start 10/12/17 at 02:15 Magnesium Hydroxide (Milk Of Magnesia Liq) 30 ml Q12H PRN PO Mild constipation ; Start 10/12/17 at 02:15 Miscellaneous Information 1 Q361D XX ; Start 10/12/17 at 02:15 Morphine Sulfate (Morphine Inj) 2 mg Q2H PRN IV PUSH PAIN SCALE 6 TO 10; Start 10/12/17 at 02:15 Nifedipine (Procardia Xl) 30 mg ONCE ONCE PO Last administered on 10/13/17at 17: 19; Start 10/13/17 at 17:00; Stop 10/13/17 at 17:01; Status DC Ondansetron HCl (Zofran Inj) 4 mg Q6H PRN IV PUSH NAUSEA OR VOMITING; Start 10/12/17 at 02:15 Senna/Docusate Sodium (Felicity-Colace) 1 tab BID PO Last administered on 10/12/17at 09:32; Start 10/12/17 at 09:00 Sennosides (Senokot) 17.2 mg Q12H PRN PO Moderate constipation; Start 10/12/17 at 02:15 Sodium Chloride (NS Flush) 10 ml UNSCH PRN IV FLUSH SEE LABEL COMMENTS; Start 10/12/17 at 16:00 Temazepam (Restoril) 15 mg HS PRN PO INSOMNIA; Start 10/12/17 at 02:15 A/P Assessment and Plan A/P End-stage renal disease -peritoneal dialysis per nephrology Depressions with suicidal ideation -Psychiatry evaluation appreciated; started on Lexapro -awaiting follow-up and recommendations. Hypertension- better controlled. -Hydralazine -Labetalol -Clonidine DVT GI prophylaxis -Jovan's and SCDs -Subcu heparin -Pepcid Discharge Planning dc to med-psych. f/u; pcp, psych and nephrology. see med list. d/w the patient. d/w . Jannette Dutton MD Oct 14, 2017 09:56
[2017-10-14] MEDS ORDERED: HYDR-3799 PO (09:58)
--- NOTE | 2017-10-14 10:00 | HHI.DS ---
Discharge Summary Admission Date Oct 12, 2017 at 01:15 Discharge Date: Oct 14, 2017 Admitting Diagnosis suicidal ideation (1) Suicidal ideation ICD Code: R45.851 - Suicidal ideations Diagnosis: Principal (2) ESRD on peritoneal dialysis ICD Code: N18.6 - End stage renal disease; Z99.2 - Dependence on renal dialysis Diagnosis: Secondary Procedures none Brief History - From Admission 52-year-old gentleman with history of end-stage renal disease on peritoneal dialysis, hypertension, depressions was brought to [facility] by Amanda after he told his that he wants to kill himself using the guns he has got at home. When he was brought to [facility] emergency department his blood pressure was found to be 204/110. Due to patient's need of hemodialysis and lack of pedal assembler at [facility] he was transferred here for higher level of care. CBC/BMP: 10/13/17 0315 10/13/17 0315 Significant Findings Laboratory Tests Test 10/12/17 01:35 10/12/17 04:30 10/13/17 03:15 Red Blood Count 3.16 MIL/MM3 (4.50-5.90) 3.33 MIL/MM3 (4.50-5.90) Hemoglobin 10.1 GM/DL (13.0-17.0) 10.5 GM/DL (13.0-17.0) Hematocrit 29.9 % (39.0-51.0) 31.2 % (39.0-51.0) Monocytes (%) (Auto) 13.6 % (0.0-8.0) 15.4 % (0.0-8.0) Lymphocytes # (Auto) 0.9 TH/MM3 (1.0-4.8) 0.6 TH/MM3 (1.0-4.8) Blood Urea Nitrogen 53 MG/DL (7-18) 62 MG/DL (7-18) Creatinine 9.51 MG/DL (0.60-1.30) 9.97 MG/DL (0.60-1.30) Total Protein 5.8 GM/DL (6.4-8.2) 6.2 GM/DL (6.4-8.2) Albumin 2.9 GM/DL (3.4-5.0) 3.0 GM/DL (3.4-5.0) Calcium Level 7.7 MG/DL (8.5-10.1) 8.1 MG/DL (8.5-10.1) Phosphorus Level 6.8 MG/DL (2.5-4.9) 7.7 MG/DL (2.5-4.9) Aspartate Amino Transf (AST/SGOT) 10 U/L (15-37) 10 U/L (15-37) Estimat Glomerular Filtration Rate 6 ML/MIN (>89) 6 ML/MIN (>89) Random Glucose 137 MG/DL (74-106) PE at Discharge GENERAL: This is a well-nourished, well-developed patient, in no apparent distress. CARDIOVASCULAR: Regular rate and regular rhythm without murmurs, gallops, or rubs. RESPIRATORY: Clear to auscultation. Breath sounds equal bilaterally. No wheezes , rales, or rhonchi. GASTROINTESTINAL: Abdomen soft, non-tender, nondistended. Normal, active bowel sounds MUSCULOSKELETAL: Extremities without clubbing, cyanosis, or edema. NEURO: Alert & Oriented x4 to person, place, time, situation. Moves all ext x4 Hospital Course End-stage renal disease -peritoneal dialysis per nephrology Depressions with suicidal ideation -Psychiatry evaluation appreciated; started on Lexapro -awaiting follow-up and recommendations. Hypertension- better controlled. -Hydralazine -Labetalol -Clonidine Pt Condition on Discharge: Good Discharge Disposition: Discharge Home Discharge Time: <= 30 minutes Discharge Instructions DIET: Follow Instructions for: Dialysis Diet Activities you can perform: Regular-No Restrictions Jannette Dutton MD Oct 14, 2017 10:00
[2017-10-14] MEDS ORDERED: CALC667C PO (10:03)
[2017-10-14 12:00] VITALS: BP 179/86; PULSE 73; RESP 18; TEMP 97.2; O2SAT 98
[2017-10-14] MEDS: cloNIDine HCL 0.1 MG TAB PO PRN (12:00)
== END 2017-10-14 14:01 | DRG 682 ==
LOC: N03A 10-12 01:15 → N07B 10-12 19:40
PROVIDERS: ADMIT Internal Medicine; ATTEND Internal Medicine
PROC: 3E1M39Z Irrigation of Peritoneal Cavity using Dialysate, Percutaneous Approach (ICD-10-PCS; principal; 2017-10-12)
DX: I12.0 Hypertensive chronic kidney disease with stage 5 chronic kidney disease or end stage renal disease (principal); N18.6 End stage renal disease; R45.851 Suicidal ideations; F32.2 Major depressive disorder, single episode, severe without psychotic features; D63.1 Anemia in chronic kidney disease; Z99.2 Dependence on renal dialysis
CPT/HCPCS: 80053; 83036; 83735; 84100; 84439; 84443; 85025; 85610; 85730; 87641; 90935; J0360; J1644

== ENCOUNTER 2017-10-14 12:29 | Inpatient (IN) | payer BC, MEDICARE ==
[~2017-10-14] VITALS: Ht 185.4 cm; Wt 106.0 kg
[~2017-10-14 12:29] MED LIST: CALC667C PO; ESCI10TA PO; HYDR-3799 PO; LABE300T PO; LISI-515 PO
[2017-10-14 14:19] VITALS: BP 186/90; PULSE 76; RESP 18; TEMP 98; O2SAT 98
[2017-10-14] MEDS ORDERED: MAGNESIUM HYDROXIDE SUSP 30 ML CUP PO PRN (15:15)
[2017-10-14] MEDS ORDERED: ALUMINUM/MAGNESIUM/SIMETH 30 ML CUP PO PRN (15:15)
[2017-10-14] MEDS ORDERED: ACETAMINOPHEN 325 MG TAB PO PRN (15:15)
[2017-10-14] MEDS ORDERED: hydrOXYzine HCL 50 MG TAB PO PRN (15:15)
[2017-10-14] MEDS ORDERED: LORazepam 2 MG/ML VIAL IM PRN (15:45)
[2017-10-14] MEDS ORDERED: LORazepam 1 MG TAB PO PRN (15:45)
--- NOTE | 2017-10-14 16:01 | HHI.HP ---
Provisional Diagnosis Admission Date Oct 14, 2017 at 14:04 [place] I. Major depression disorder single episode severe without psychotic features f 32.2 Certification of Person's Competence To Provide Express and Informed Consent I have personally examined Anthony Hong , a person being served at [facility] on, Oct 14, 2017 15:12. Express and informed consent means consent voluntarily given in writing, by a competent person, after sufficient explanation and disclosure of the subject matter involved to enable the person to make a knowing and willful decision without any element of force, fraud, deceit, duress, or other form of constraint or coercion. This person is 18 years of age or older, is not now known to be incompetent to consent to treatment with a guardian advocate, and does not have a health care surrogate or proxy currently making medical treatment decisions. I have found this person to be one of the following: [] Competent to provide express and informed consent, as defined above, for voluntary admission to this facility and is competent to provide express and informed consent for treatment. He/she has the consistent capacity to make well reasoned, willful, and knowing decisions concerning his or her medical or mental health treatment. The person fully and consistently understands the purpose of the admission for examination/placement and is fully capable of personally exercising all rights assured [place] [] Incompetent to provide express and informed consent to voluntary admission, and this is incompetent to provide express and informed consent to treatment. The person must be transferred to involuntary status and a petition for a guardian advocate filed with the Circuit Court. [xx] Refusing to provide express and informed consent to voluntary admission but is competent to provide express and informed consent for treatment. The person must be discharged or transferred to involuntary status. Form shall be completed within 24 hours of a person's arrival at the receiving facility and filed in the clinical record of each person: 1. Admitted on a voluntary basis 2. Permitted to provide express and informed consent to his/her own treatment 3. Allowed to transfer from involuntary to voluntary status 4. Prior to permitting a person to consent to his or her own treatment after having been previously found incompetent to consent to treatment. History of Present Illness Capacity: Lacks Capacity (patient less capacity is significant for admission patient has capacity to sign for medication) HPI Patient is a 52-year-old white male was initially brought to [facility] transferred from [facility] under Wetzel act admitted to medical service for assessment of his end-stage renal disease` and peritoneal dialysis. Patient seen by me in consultation on Thursday 10/12. At that time november. The patient had a severe major depression. And I continued the Wetzel act. Patient seen on that day was markedly depressed there is documentation that he attempted to get into his gun cabinet in his home but his prevented it he then got his car attempted to drive away but is followed by is 18-year-old daughter who prevented from doing anything tragic then he was Wetzel acted. Patient has stress of losing his job having this end-stage renal disease p.m. peritoneal dialysis every night at home leading to decreased energy decreased focus hopelessness helplessness on the multiple issues related to his major depression. He's had no prior significant depressive disorder I just talked with patient's is named Ms. Arguello at [phone] she verifies the significance of his depression is anger and his stoicism. She is willing to meet with us tomorrow morning about 10 AM to talk about patient's behavior mood and treatment and follow-up for now will continue his medications per the medical admission including his Lexapro Review of Systems Except as stated in HPI: all other systems reviewed are Neg Past Psych History Psychological trauma history Patient denies Violence risk - others (6 mos) Low Violence risk - self (6 mos) Moderate to high Substance Abuse History Drugs/Alcohol past 12 months Denies Past Family Social History Coded Allergies: Penicillins (Verified Allergy, Mild, SKIN RASH, 10/12/17) Active Scripts Calcium Acetate (Phosphate Bin (Calcium Acetate) 667 Mg Cap, 1334 MG PO TID for esrd for 30 Days, CAP 0 Refills Prov:Jannette Dutton MD 10/14/17 Hydralazine HCl (Hydralazine HCl) 25 Mg Tablet, 50 MG PO Q12HR for hypertension for 30 Days, TAB 0 Refills Prov:Jannette Dutton MD 10/14/17 Escitalopram (Escitalopram) 10 Mg Tab, 10 MG PO DAILY for depression for 30 Days , #30 TAB 0 Refills Prov:Jannette Dutton MD 10/13/17 Reported Medications Lisinopril (Lisinopril) 20 Mg Tab, 20 MG PO BID, #30 TAB 0 Refills 10/13/17 Hydralazine HCl (Hydralazine HCl) 25 Mg Tablet, 25 MG PO TID for Blood Pressure Management, #90 TAB 0 Refills 10/13/17 Labetalol (Labetalol) 300 Mg Tab, 300 MG PO BID for Blood Pressure Management, TAB 0 Refills 10/13/17 Family Psych History Denies Social History Patient with of 30+ years his 2 adult children and supportive family Patient's Strengths (min. 2) Patient verbal cooperative is somewhat reluctant, supportive family Physical Exam Please see MedSurg patient staying in his room he is in no acute distress, is in no respiratory distress, no complaints of abdominal pain, patient overall 4 extremities without difficulty Vital Signs Vital Signs Date Time Temp Pulse Resp B/P (MAP) Pulse Ox O2 Delivery O2 Flow Rate FiO2 10/14/17 14:19 98.0 76 18 186/90 (122) 98 Mental Status Examination Appearance: Appropriate Consciousness: Alert Orientation: x4 Motor Activity: Normal gait Speech: Unremarkable Language: Adequate Fund of Knowledge: Adequate Attention and Concentration: Adequate Memory: Unremarkable Mood: Angry, Sad, Oppositional Affect: Other (decreased range increase intensity) Thought Process & Associations: Intact, Linear Thought Content: Appropriate Hallucination Type: None Delusion Type: None Suicidal Ideation: Yes (denies at this time) Suicidal Plan: No Suicidal Intention: No (denies at this time) Homicidal Ideation: No Homicidal Plan: No Homicidal Intention: No Insight: Fair Judgment: Impulsive Assessment & Plan Problem List: (1) Severe major depression, single episode, without psychotic features ICD Codes: F32.2 - Major depressive disorder, single episode, severe without psychotic features Assessment & Plan Estimated LOS: 3-5 days this time patient meets criteria for involuntary psychiatric hospitalization of the Wetzel act I'll do first opinion request second opinion. Peripheral patient does have capacity significant medications. We will continue the nephrology and hospitalist consultation. Will be meeting with the patient's tomorrow morning about 10 AM Discharge Planning To be determined with assistance of tomorrow morning Request HC Surrog/Guard Advoc?: No Vincenzo Boyd MD Oct 14, 2017 16:01
[2017-10-14] MEDS ORDERED: SODIUM CHLORIDE 0.9% FLUSH 10 ML FLUSH IV FLUSH PRN (17:00)
[2017-10-14] MEDS ORDERED: HEPARIN SODIUM - IV 10,000 UNITS/10 ML VIAL XX PRN (17:00)
[2017-10-14] MEDS: CALCIUM ACETATE 667 MG CAP PO SCH (17:02)
[2017-10-14] MEDS ORDERED: hydrALAZINE HCL 25 MG TAB PO SCH (18:00)
[2017-10-14 18:33] VITALS: BP 158/79; PULSE 74; RESP 14; TEMP 98.3; O2SAT 99
[2017-10-14] MEDS ORDERED: REMOVE OLD NICOTINE PATCH T-DERMAL SCH (21:00)
[2017-10-14] MEDS: LISINOPRIL 20 MG TAB PO SCH (21:02)
[2017-10-14] MEDS: hydrALAZINE HCL 25 MG TAB PO SCH (21:03)
[2017-10-14] MEDS: LABETALOL HCL 300 MG TAB PO SCH (21:49)
[2017-10-15 05:25] VITALS: BP 164/74; PULSE 88; RESP 16; TEMP 98.1; O2SAT 97
[2017-10-15] MEDS ORDERED: NICOTINE 21 MG/24 HR PATCH T-DERMAL SCH (09:00)
--- NOTE | 2017-10-15 10:21 | PD.PSY.CON ---
Provisional Diagnosis Admission Date Oct 14, 2017 at 14:04 [place] I. 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 Boyd Reason for Consult Second opinion Primary Care Physician Unknown HPI Patient is a 52-year-old white male was initially brought to [facility] transferred from [facility] under Wetzel act admitted to medical service for assessment of his end-stage renal disease` and peritoneal dialysis. Patient seen by me in consultation on Thursday 10/12. At that time november. The patient had a severe major depression. And I continued the Wetzel act. Patient seen on that day was markedly depressed there is documentation that he attempted to get into his gun cabinet in his home but his prevented it he then got his car attempted to drive away but is followed by is 18-year-old daughter who prevented from doing anything tragic then he was Wetzel acted. Patient has stress of losing his job having this end-stage renal disease p.m. peritoneal dialysis every night at home leading to decreased energy decreased focus hopelessness helplessness on the multiple issues related to his major depression. He's had no prior significant depressive disorder I just talked with patient's is named Ms. Arguello at [phone] she verifies the significance of his depression is anger and his stoicism. She is willing to meet with us tomorrow morning about 10 AM to talk about patient's behavior mood and treatment and follow-up for now will continue his medications per the medical admission including his Lexapro. 10/15/17 -second opinion Patient is a 52-year-old man, , domiciled with , unemployed , with past medical history significant for end-stage renal disease on peritoneal dialysis, who was under Wetzel act due to suicidal ideation and depression. Patient was found sitting in hospital bed noted B, cooperative. Patient states that he had an argument with his and that he "drove off to cool off" at which point she called the police and had patient brought to the hospital. As per chart patient has been depressed along with having attempted to get his gun cabinet in his home which his prevented at which point he got into the cart attempted to drive away. Patient did not mention these details and when asked about reasons why his felt the need to call police patient states "I do not know you have to ask my ". Patient noted to minimize recent events and states that he cannot remember the circumstances which brought him here stating "it was a blur". Patient did endorse feeling depressed "a little bit" as he mentioned several stressors that are contributing to his depression including being on dialysis, having lost his job in 2011, the passing of his mother 2 years ago as well as his pet. Patient at this time states he would like to go home denying any suicide ideation, denies any prior suicidal ideations in the past and that is tolerating treatment without any adverse drug reactions at this time. Past Family Social History Coded Allergies: Penicillins (Verified Allergy, Mild, SKIN RASH, 10/12/17) Active Scripts Calcium Acetate (Phosphate Bin (Calcium Acetate) 667 Mg Cap, 1334 MG PO TID for esrd for 30 Days, CAP 0 Refills Prov:Jannette Dutton MD 10/14/17 Hydralazine HCl (Hydralazine HCl) 25 Mg Tablet, 50 MG PO Q12HR for hypertension for 30 Days, TAB 0 Refills Prov:Jannette Dutton MD 10/14/17 Escitalopram (Escitalopram) 10 Mg Tab, 10 MG PO DAILY for depression for 30 Days , #30 TAB 0 Refills Prov:Jannette Dutton MD 10/13/17 Reported Medications Lisinopril (Lisinopril) 20 Mg Tab, 20 MG PO BID, #30 TAB 0 Refills 10/13/17 Labetalol (Labetalol) 300 Mg Tab, 300 MG PO BID for Blood Pressure Management, TAB 0 Refills 10/13/17 Discontinued Reported Medications Hydralazine HCl (Hydralazine HCl) 25 Mg Tablet, 25 MG PO TID for Blood Pressure Management, #90 TAB 0 Refills 10/13/17 Current Medications Medications (Trade) Dose Ordered Sig/Ceasar Route Start Time Stop Time Status Last Admin (Tylenol) 650 mg Q4H PRN PO 10/14/17 15:15 (Milk Of Magnesia Liq) 30 ml DAILY PRN PO 10/14/17 15:15 (Mag-Al Plus Susp Liq) 30 ml Q6H PRN PO 10/14/17 15:15 (Atarax) 50 mg Q6H PRN PO 10/14/17 15:15 (Phoslo) 1,334 mg TID PO 10/14/17 18:00 10/14/17 17:02 (Lexapro) 10 mg DAILY PO 10/15/17 09:00 (Trandate) 300 mg BID PO 10/14/17 21:00 10/14/17 21:49 (Prinivil) 20 mg BID PO 10/14/17 21:00 10/14/17 21:02 (Apresoline) 50 mg Q12HR PO 10/14/17 21:00 10/14/17 21:03 (Heparin Inj) 1,000 units WITH DIALYSIS PRN XX 10/14/17 17:00 (NS Flush) 10 ml UNSCH PRN IV FLUSH 10/14/17 17:00 Patient's Strengths (min. 2) Patient verbal cooperative is somewhat reluctant, supportive family Physical Exam Vital Signs Vital Signs Date Time Temp Pulse Resp B/P (MAP) Pulse Ox O2 Delivery O2 Flow Rate FiO2 10/15/17 05:25 98.1 88 16 164/74 (104) 97 I/O 10/15/17 10/15/17 10/16/17 08:00 16:00 00:00 Intake Total 480 ml Output Total 1090 ml Balance -610 ml Mental Status Examination Appearance: Appropriate Consciousness: Alert Orientation: x4 Motor Activity: Normal gait Speech: Unremarkable Language: Adequate Fund of Knowledge: Adequate Attention and Concentration: Adequate Memory: Unremarkable Mood: Sad, Oppositional Affect: Other (decreased range increase intensity, guarded) Thought Process & Associations: Intact, Linear Thought Content: Appropriate Hallucination Type: None Delusion Type: None Suicidal Ideation: Yes (denies at this time) Suicidal Plan: No Suicidal Intention: No (denies at this time) Homicidal Ideation: No Homicidal Plan: No Homicidal Intention: No Insight: Fair Judgment: Impulsive Assessment & Plan Problem List: (1) Severe major depression, single episode, without psychotic features ICD Codes: F32.2 - Major depressive disorder, single episode, severe without psychotic features Assessment & Plan I have seen and examined this patient, reviewed the documentation and I agree and concur with Dr. Boyd assessment and plan. Second opinion documentation completed. Consult appreciated. Request HC Surrog/Guard Advoc?: No Ruben Chacko MD Oct 15, 2017 10:21
[2017-10-15] MEDS: hydrALAZINE HCL 25 MG TAB PO SCH ×2 (11:33→17:50)
[2017-10-15] MEDS: LISINOPRIL 20 MG TAB PO SCH ×2 (11:33→21:00)
[2017-10-15] MEDS: ESCITALOPRAM OXALATE 10 MG TAB PO SCH (11:34)
[2017-10-15] MEDS: LABETALOL HCL 300 MG TAB PO SCH ×2 (11:34→21:00)
[2017-10-15] MEDS: CALCIUM ACETATE 667 MG CAP PO SCH ×2 (11:37→17:50)
--- NOTE | 2017-10-15 11:49 | HHI.PYPN ---
Subjective Remarks Met with patient on unit with patient's and father, along with nurse patient and counselor Deja. Discussed patient's behavior leading to the Wetzel act and admission. Patient reluctantly acknowledges that depression the vague suicidal ideation with intent to get a gun and shoot himself. Family states he has always been stubborn refusing medical care and trying poor compliance with medical treatment and medications. Father acknowledges that he and his son have been outdoors people enjoying hunting and fishing. Patient did have multiple firearms in his house. His has removed them a place him in a secure facility. This time patient continues to meet Wetzel criteria will continue treatment. Patient is been compliant albeit reluctantly with his medication Review of Systems Except as stated in HPI: all other systems reviewed are Neg Mental Status Examination Appearance: Appropriate Consciousness: Alert Orientation: x4 Motor Activity: Normal gait Speech: Unremarkable Language: Adequate Fund of Knowledge: Adequate Attention and Concentration: Adequate Memory: Unremarkable Mood: Sad, Oppositional Affect: Other (decreased range increase intensity, guarded) Thought Process & Associations: Intact, Linear Thought Content: Appropriate Hallucination Type: None Delusion Type: None Suicidal Ideation: Yes (denies at this time) Suicidal Plan: No Suicidal Intention: No (denies at this time) Homicidal Ideation: No Homicidal Plan: No Homicidal Intention: No Insight: Fair Judgment: Impulsive Results Vitals/IOs Vital Signs Date Time Temp Pulse Resp B/P (MAP) Pulse Ox O2 Delivery O2 Flow Rate FiO2 10/15/17 05:25 98.1 88 16 164/74 (104) 97 Intake and Output 10/15/17 10/15/17 10/16/17 08:00 16:00 00:00 Intake Total 480 ml Output Total 1090 ml Balance -610 ml Assessment & Plan Problem List: (1) Severe major depression, single episode, without psychotic features ICD Codes: F32.2 - Major depressive disorder, single episode, severe without psychotic features Assessment & Plan Estimated LOS: days patient remains depressed with vague suicidality, there is some left heel his affect related to this. He showed no significant affect are lability anytime during her family meeting Justification for Cont. Inpt. At this time patient will decompensate if placed on the lower level of care Discharge Planning Probable return home with family Request HC Surrog/Guard Advoc?: No Vincenzo Boyd MD Oct 15, 2017 11:49
--- NOTE | 2017-10-15 15:27 | PD.CONS ---
HPI Service Nephrology Consult Requested By Dr. Boyd Reason for Consult ESRD on APD Primary Care Physician Unknown History of Present Illness This is a 52-year-old male with a past medical history of hypertension, history of depression, end-stage renal disease on peritoneal dialysis. Nephrology was called to see the patient for the management of peritoneal dialysis. 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 He was admitted to [facility] because he told the that he wanted to kill himself using a gun and he is Wetzel Acted. (Becca Ching) Review of Systems Cardiovascular: DENIES: Chest pain, Dyspnea on Exertion, Lower Extremity Edema Gastrointestinal: DENIES: Abdominal pain, Constipation, Diarrhea (Becca Ching) Past Family Social History Allergies: Coded Allergies: Penicillins (Verified Allergy, Mild, SKIN RASH, 10/12/17) Past Medical History Hypertension, end-stage renal disease, on peritoneal dialysis, history of depression. Past Surgical History PD catheter placement. Active Ordered Medications Current Medications Medications (Trade) Dose Ordered Sig/Ceasar Route Start Time Stop Time Status Last Admin (Tylenol) 650 mg Q4H PRN PO 10/14/17 15:15 (Milk Of Magnesia Liq) 30 ml DAILY PRN PO 10/14/17 15:15 (Mag-Al Plus Susp Liq) 30 ml Q6H PRN PO 10/14/17 15:15 (Atarax) 50 mg Q6H PRN PO 10/14/17 15:15 (Phoslo) 1,334 mg TID PO 10/14/17 18:00 10/15/17 11:37 (Lexapro) 10 mg DAILY PO 10/15/17 09:00 10/15/17 11:34 (Trandate) 300 mg BID PO 10/14/17 21:00 10/15/17 11:34 (Prinivil) 20 mg BID PO 10/14/17 21:00 10/15/17 11:33 (Apresoline) 50 mg Q12HR PO 10/14/17 21:00 10/15/17 11:33 (Heparin Inj) 1,000 units WITH DIALYSIS PRN XX 10/14/17 17:00 (NS Flush) 10 ml UNSCH PRN IV FLUSH 10/14/17 17:00 Family History noncontributory Social History He is , lives with his . There is no history of smoking or alcoholism. (Becca Ching) Physical Exam Vital Signs Vital Signs Date Time Temp Pulse Resp B/P (MAP) Pulse Ox O2 Delivery O2 Flow Rate FiO2 10/15/17 05:25 98.1 88 16 164/74 (104) 97 10/14/17 18:33 98.3 74 14 158/79 (105) 99 Physical Exam GENERAL: Alert and oriented SKIN: Warm and dry. HEAD: Normocephalic. EYES: No scleral icterus. No injection or drainage. NECK: Supple, trachea midline. No JVD or lymphadenopathy. CARDIOVASCULAR: Regular rate and rhythm without murmurs, gallops, or rubs. RESPIRATORY: Breath sounds equal bilaterally. No accessory muscle use. GASTROINTESTINAL: Abdomen soft, non-tender, nondistended. PD catheter MUSCULOSKELETAL: No cyanosis, or edema. BACK: Nontender without obvious deformity. No CVA tenderness. (Becca Ching) Assessment and Plan Problem List: (1) ESRD on peritoneal dialysis ICD Codes: N18.6 - End stage renal disease; Z99.2 - Dependence on renal dialysis Plan: ESRD on Peritoneal dialysis. He is doing 2 of 5 L bag and 2.5% Tolerating well Plan Continue APD Continue Phoslo (2) HTN (hypertension) ICD Codes: I10 - Essential (primary) hypertension Plan: Hydralazine increased (Becca Ching) Problem List: (1) ESRD on peritoneal dialysis ICD Codes: N18.6 - End stage renal disease; Z99.2 - Dependence on renal dialysis Plan: ESRD on Peritoneal dialysis. He is doing 2 of 5 L bag and 2.5% Tolerating well Plan Continue APD Continue Phoslo Doing better, not in fluid overload. (2) HTN (hypertension) ICD Codes: I10 - Essential (primary) hypertension Plan: Hydralazine increased (Alex Whitt MD) Problem Qualifiers (1) HTN (hypertension): Qualified Codes: I10 - Essential (primary) hypertension Becca Ching Oct 15, 2017 15:27 Alex Whitt MD Oct 15, 2017 18:08
[2017-10-15 18:00] VITALS: BP 179/84; PULSE 72; RESP 15; TEMP 97.9; O2SAT 97
--- NOTE | 2017-10-15 20:56 | PD.CONS ---
[facility] Care Physician Unknown Diagnoses: History of Present Illness History from patient, and review of medical records. Patient is admitted to inpatient psychiatry unit. Medical team was consulted for management of his medical conditions. Patient reports of history of hypertension and end-stage renal disease on peritoneal dialysis. he denies any symptoms. He denies any chest pain/palpitations/shortness of breath/focal weakness. Denies any nausea/vomiting/diarrhea/urinary burning or pain on urination. I seen blood in his urine or stool. He reports that he still making urine. He's been on dialysis only for past 6 months. Patient is receiving pertinent dialysis at the time of my exam. He was evaluated by nephrology this morning. Review of Systems Except as stated in HPI: all other systems reviewed are Neg Past Family Social History Allergies: Coded Allergies: Penicillins (Verified Allergy, Mild, SKIN RASH, 10/12/17) Past Medical History htn was diabetic, but no longer needed meds after being on dialysis ESRD - peritoneal dialysis for past 6 months Past Surgical History peritoneal dialysis catheter placement left knee sx about 5 yrs ago Family History dad- htn, heart problems, ppm mom- diseased- dm, heart problems, dementia Social History no etoh abuse or drug abuse never smoked Physical Exam Vital Signs Vital Signs Date Time Temp Pulse Resp B/P (MAP) Pulse Ox O2 Delivery O2 Flow Rate FiO2 10/15/17 18:00 97.9 72 15 179/84 (115) 97 10/15/17 05:25 98.1 88 16 164/74 (104) 97 Physical Exam GENERAL: This is a well-nourished, well-developed patient, in no apparent distress. SKIN: No rashes, ecchymoses or lesions. Cool and dry. HEAD: Atraumatic. Normocephalic. No temporal or scalp tenderness. EYES: No scleral icterus. No injection or drainage. ENT: Nose without bleeding, purulent drainage or septal hematoma. Airway patent. NECK: Trachea midline. No JVD Supple, nontender, no meningeal signs. CARDIOVASCULAR: Regular rate and rhythm without murmurs, gallops, or rubs. RESPIRATORY: Clear to auscultation. Breath sounds equal bilaterally. No wheezes , rales, or rhonchi. GASTROINTESTINAL: Abdomen soft, non-tender, nondistended. No guarding. MUSCULOSKELETAL: Extremities without clubbing, cyanosis, or edema. . No calf tenderness. NEUROLOGICAL: Awake and alert.Motor and sensory grossly within normal limits. Normal speech. Assessment and Plan Assessment and Plan Impression: Depression. Management per psychiatry. Hypertension Diet-controlled diabetes. Patient was previously on medications for diabetes. But has been off the medication since the start of dialysis because of low blood sugars. End stage end-stage on peritoneal dialysis for past 6 months. Plan: Patient's home medications reviewed with him. His blood pressures remained to be elevated today and nephrology has been managing his blood pressure and increased hydralazine dose. Continue to monitor blood pressure. Continue current dialysis. Since nephrology is following his management of hypertension and dialysis, I will sign off on the case. Patient is medically stable. Discussed Condition With Patient, nursing staff Edmond Starks MD Oct 15, 2017 20:56
[2017-10-16 06:23] VITALS: BP 185/93; PULSE 87; RESP 16; TEMP 98.1
[2017-10-16] MEDS: hydrALAZINE HCL 25 MG TAB PO SCH ×3 (09:00→17:07)
[2017-10-16] MEDS: LISINOPRIL 20 MG TAB PO SCH ×2 (10:43→20:54)
[2017-10-16] MEDS: ESCITALOPRAM OXALATE 10 MG TAB PO SCH (10:43)
[2017-10-16] MEDS: LABETALOL HCL 300 MG TAB PO SCH ×2 (10:43→20:54)
[2017-10-16] MEDS: CALCIUM ACETATE 667 MG CAP PO SCH ×3 (10:43→17:07)
--- NOTE | 2017-10-16 10:44 | HHI.PYPN ---
Subjective Remarks Patient seen in his room with nurse Farooq, chart review, patient on medications. Patient discussed with nurse. Patient showing some slight increase in his affect, there is less irritability and anger. This seems to be some very slight improvement in processing. He now acknowledges that it was his behavior got him Wetzel acted not his 's. For now continue treatment will increase Lexapro to 20 mg daily Review of Systems Except as stated in HPI: all other systems reviewed are Neg Mental Status Examination Appearance: Appropriate Consciousness: Alert Orientation: x4 Motor Activity: Normal gait Speech: Unremarkable Language: Adequate Fund of Knowledge: Adequate Attention and Concentration: Adequate Memory: Unremarkable Mood: Sad, Oppositional Affect: Other (decreased range increase intensity, guarded) Thought Process & Associations: Intact, Linear Thought Content: Appropriate Hallucination Type: None Delusion Type: None Suicidal Ideation: Yes (denies at this time) Suicidal Plan: No Suicidal Intention: No (denies at this time) Homicidal Ideation: No Homicidal Plan: No Homicidal Intention: No Insight: Fair Judgment: Impulsive Results Vitals/IOs Vital Signs Date Time Temp Pulse Resp B/P (MAP) Pulse Ox O2 Delivery O2 Flow Rate FiO2 10/16/17 06:23 98.1 87 16 185/93 (123) 10/15/17 18:00 97 Intake and Output 10/16/17 10/16/17 10/17/17 08:00 16:00 00:00 Intake Total 240 ml 240 ml Balance 240 ml 240 ml Assessment & Plan Problem List: (1) Severe major depression, single episode, without psychotic features ICD Codes: F32.2 - Major depressive disorder, single episode, severe without psychotic features Assessment & Plan Estimated LOS: days patient continues depressed though showing some minimal insight, he is compliant medications. For now continue treatment she medication adjustment above Justification for Cont. Inpt. At this time patient decompensated placed in a lower level of care Discharge Planning Return home with family Request HC Surrog/Guard Advoc?: No Vincenzo Boyd MD Oct 16, 2017 10:44
[2017-10-16 18:02] VITALS: BP 149/80; PULSE 70; RESP 16; TEMP 98.4; O2SAT 99
--- NOTE | 2017-10-16 18:57 | HHI.NPPN ---
Subjective History of Present Illness 52-year-old male with a past medical history of hypertension, history of depression, end-stage renal disease on peritoneal dialysis. Nephrology was called to see the patient for the management of peritoneal dialysis. He has been on peritoneal dialysis for 6 months according to the patient, and he is following with a production trainer in the area where he lives, which is close to [place]. He was admitted to [facility] because he told the that he wanted to kill himself using a gun and he is Wetzel Acted. Additional Remarks Patient seen in the afternoon, doing better, no abd. pain, no SOB. Review of Systems General Constitutional: Fatigue Objective Data Data 10/16/17 10/17/17 19:00 07:00 Intake Total 1810 ml Balance 1810 ml Intake Oral 1810 ml # Voids 2 Vital Signs Date Time Temp Pulse Resp B/P (MAP) Pulse Ox O2 Delivery O2 Flow Rate FiO2 10/16/17 18:02 98.4 70 16 149/80 (103) 99 10/16/17 06:23 98.1 87 16 185/93 (123) Physical Exam General Appearance: No Acute Distress, Comfortable Eyes Eye Exam: Pupils Equal Throat Throat Exam: Oral Mucosa [place] & Moist Neck Neck Exam: Neck Supple Pulmonary Resp Exam: Clear Bilaterally, Breath Sounds Equal, No Distress, Decreased Bases Cardiology CV Exam: Regular, Normal Sinus Rhythm Gastrointestinal/Abdomen GI Exam: Soft, Non-Tender, Bowel Sounds Present, Distended Extremeties Extremities Exam: Trace Edema Neurologic Neuro Exam: Alert, Awake, Oriented Psychiatric Psych Exam: Appropriate Responses Assessment/Plan Problem List: (1) ESRD on peritoneal dialysis ICD Codes: N18.6 - End stage renal disease; Z99.2 - Dependence on renal dialysis Plan: ESRD on Peritoneal dialysis. He is doing 2 of 5 L bag and 2.5% Tolerating well Plan Continue APD Continue Phoslo Doing better, not in fluid overload. Patient is tolerating APD, no abd. pain, not in fluid overload. Further management as per Psychiatry. (2) HTN (hypertension) ICD Codes: I10 - Essential (primary) hypertension Plan: Hydralazine increased Problem Qualifiers (1) HTN (hypertension): Qualified Codes: I10 - Essential (primary) hypertension Alex Whitt MD Oct 16, 2017 18:57
[2017-10-17 05:57] VITALS: BP 208/97; PULSE 73; RESP 17; TEMP 98; O2SAT 97
--- NOTE | 2017-10-17 09:25 | HHI.PYPN ---
Subjective Remarks Patient seen today with floor staff in his room, chart reviewed, patient compliant medications, patient discussed with nurse. Patient also discussed with counselor Deja. Patient continues calm cooperative compliant with medication. Denies suicidality homicidality voices or visions. Does acknowledge his need to continue his medications after discharge along with psychiatric follow-up and counseling services. Patient also showing some frustration with being of the neuropsych unit with the structure of the unit. He would wish to be home is able to commit to do no harm. Will have counselor contact patient's to discuss possibility of discharge soon Review of Systems Except as stated in HPI: all other systems reviewed are Neg Mental Status Examination Appearance: Appropriate Consciousness: Alert Orientation: x4 Motor Activity: Normal gait Speech: Unremarkable Language: Adequate Fund of Knowledge: Adequate Attention and Concentration: Adequate Memory: Unremarkable Mood: Sad, Oppositional Affect: Other (decreased range increase intensity, guarded) Thought Process & Associations: Intact, Linear Thought Content: Appropriate Hallucination Type: None Delusion Type: None Suicidal Ideation: Yes (denies at this time) Suicidal Plan: No Suicidal Intention: No (denies at this time) Homicidal Ideation: No Homicidal Plan: No Homicidal Intention: No Insight: Fair Judgment: Impulsive Results Vitals/IOs Vital Signs Date Time Temp Pulse Resp B/P (MAP) Pulse Ox O2 Delivery O2 Flow Rate FiO2 10/17/17 05:57 98.0 73 17 208/97 (134) 97 Assessment & Plan Problem List: (1) Severe major depression, single episode, without psychotic features ICD Codes: F32.2 - Major depressive disorder, single episode, severe without psychotic features Assessment & Plan Estimated LOS: days patient showing some improvement in his depression, denying suicidality homicidality voices or visions. His affect still shows decreased range intensity. Though there is some bowel frustration on his part with his continued stay in the hospital. Will have counselor check with patient 's about possible discharge plans Justification for Cont. Inpt. At this time patient would decompensated placed on the lower level of care Discharge Planning To be determined with consultation with family Request HC Surrog/Guard Advoc?: No Vincenzo Boyd MD Oct 17, 2017 09:25
[2017-10-17] MEDS: ESCITALOPRAM OXALATE 10 MG TAB PO SCH (10:15)
[2017-10-17] MEDS: LISINOPRIL 20 MG TAB PO SCH (10:15)
[2017-10-17] MEDS: LABETALOL HCL 300 MG TAB PO SCH (10:15)
[2017-10-17] MEDS: CALCIUM ACETATE 667 MG CAP PO SCH ×3 (10:15→18:00)
[2017-10-17 11:00] VITALS: BP 160/78
--- NOTE | 2017-10-17 11:12 | HHI.NPPN ---
Subjective General Problems: Hypertension Renal Failure: End Stage Renal Disease History of Present Illness 52-year-old male with a past medical history of hypertension, history of depression, end-stage renal disease on peritoneal dialysis. Nephrology was called to see the patient for the management of peritoneal dialysis. He has been on peritoneal dialysis for 6 months according to the patient, and he is following with a senior editor in the area where he lives, which is close to [place]. He was admitted to [facility] because he told the that he wanted to kill himself using a gun and he is Wetzel Acted. Additional Remarks Patient resting comfortable. Nursing at bedside. Blood pressure noted to be elevated. (Becca Ching) Review of Systems General Constitutional: Fatigue (Becca Ching) Respiratory Respiratory Remarks denies any SOB (Becca Ching) Cardiovascular Cardiac Remarks Denies any CP (Becca Ching) Gastrointestinal GI Remarks Denies any abdominal pain (Becca Ching) Objective Data Data 10/17/17 10/18/17 19:00 07:00 Intake Total 360 ml Balance 360 ml Intake Oral 360 ml Vital Signs Date Time Temp Pulse Resp B/P (MAP) Pulse Ox O2 Delivery O2 Flow Rate FiO2 10/17/17 05:57 98.0 73 17 208/97 (134) 97 10/16/17 18:02 98.4 70 16 149/80 (103) 99 (Becca Ching) Tubes & Lines Comment PD catheter (Becca Ching) Physical Exam General Appearance: No Acute Distress, Comfortable (Becca Ching) Eyes Eye Exam: Pupils Equal (Becca Ching) Throat Throat Exam: Oral Mucosa Wedron & Moist (Becca Ching) Neck Neck Exam: Neck Supple (Becca Ching) Pulmonary Resp Exam: Clear Bilaterally, Breath Sounds Equal, No Distress, Decreased Bases (Becca Ching) Cardiology CV Exam: Regular, Normal Sinus Rhythm (Becca Ching) Gastrointestinal/Abdomen GI Exam: Soft, Non-Tender, Bowel Sounds Present, Distended (Becca Ching) Extremeties Extremities Exam: Trace Edema (Becca Ching) Neurologic Neuro Exam: Alert, Awake, Oriented (Becca Ching) Psychiatric Psych Exam: Appropriate Responses (Becca Ching) Assessment/Plan Problem List: (1) ESRD on peritoneal dialysis ICD Codes: N18.6 - End stage renal disease; Z99.2 - Dependence on renal dialysis Plan: ESRD on Peritoneal dialysis. He is doing 2 of 5 L bag and 2.5% Tolerating well Plan Continue APD Continue Phoslo Hypertensive Hydralazine increased and prn clonidine Patient is cleared for discharge from nephrology standpoint and can follow up with outpatient senior editor. Further management as per Psychiatry. (2) HTN (hypertension) ICD Codes: I10 - Essential (primary) hypertension Plan: Hydralazine increased (Becca Ching) Problem List: (1) ESRD on peritoneal dialysis ICD Codes: N18.6 - End stage renal disease; Z99.2 - Dependence on renal dialysis Plan: ESRD on Peritoneal dialysis. He is doing 2 of 5 L bag and 2.5% Tolerating well Plan Continue APD Continue Phoslo Hypertensive Hydralazine increased and prn clonidine Patient is cleared for discharge from nephrology standpoint and can follow up with outpatient senior editor. Further management as per Psychiatry. Patient seen and examined, agree with above. For possible discharge. 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 (2) HTN (hypertension) ICD Codes: I10 - Essential (primary) hypertension Plan: Hydralazine increased (Alex Whitt MD) Problem Qualifiers (1) HTN (hypertension): Qualified Codes: I10 - Essential (primary) hypertension Becca Ching Oct 17, 2017 11:12 Alex Whitt MD Oct 17, 2017 17:42
[2017-10-17] MEDS ORDERED: HYDR-3799 PO (11:24)
[2017-10-17] MEDS ORDERED: LISI-515 PO (11:24)
[2017-10-17] MEDS ORDERED: ESCI10TA PO (11:24)
[2017-10-17] MEDS ORDERED: LABE300T PO (11:24)
[2017-10-17] MEDS ORDERED: CALC667C PO (11:24)
--- NOTE | 2017-10-17 11:30 | HHI.DS ---
Psychiatry Discharge Summary Inpatient Psychiatric care?: Yes Advance Directive: No Reason Not Provided: EDUCATION PROVIDED Mental Health AdvanceDirective: No Health Care Proxy: No Admission Admission Date Oct 14, 2017 at 14:04 Admission Diagnosis: (1) Severe major depression, single episode, without psychotic features ICD Code: F32.2 - Major depressive disorder, single episode, severe without psychotic features Brief History Patient is a 52-year-old white male was initially brought to [facility] transferred from [facility] under Wetzel act admitted to medical service for assessment of his end-stage renal disease` and peritoneal dialysis. Patient seen by me in consultation on Thursday 10/12. At that time november. The patient had a severe major depression. And I continued the Wetzel act. Patient seen on that day was markedly depressed there is documentation that he attempted to get into his gun cabinet in his home but his prevented it he then got his car attempted to drive away but is followed by is 18-year-old daughter who prevented from doing anything tragic then he was Wetzel acted. Patient has stress of losing his job having this end-stage renal disease p.m. peritoneal dialysis every night at home leading to decreased energy decreased focus hopelessness helplessness on the multiple issues related to his major depression. He's had no prior significant depressive disorder I just talked with patient's is named Ms. Arguello at [phone] she verifies the significance of his depression is anger and his stoicism. She is willing to meet with us tomorrow morning about 10 AM to talk about patient's behavior mood and treatment and follow-up for now will continue his medications per the medical admission including his Lexapro. 10/15/17 -second opinion Patient is a 52-year-old man, , domiciled with , unemployed , with past medical history significant for end-stage renal disease on peritoneal dialysis, who was under Wetzel act due to suicidal ideation and depression. Patient was found sitting in hospital bed noted B, cooperative. Patient states that he had an argument with his and that he "drove off to cool off" at which point she called the police and had patient brought to the hospital. As per chart patient has been depressed along with having attempted to get his gun cabinet in his home which his prevented at which point he got into the cart attempted to drive away. Patient did not mention these details and when asked about reasons why his felt the need to call police patient states "I do not know you have to ask my ". Patient noted to minimize recent events and states that he cannot remember the circumstances which brought him here stating "it was a blur". Patient did endorse feeling depressed "a little bit" as he mentioned several stressors that are contributing to his depression including being on dialysis, having lost his job in 2011, the passing of his mother 2 years ago as well as his pet. Patient at this time states he would like to go home denying any suicide ideation, denies any prior suicidal ideations in the past and that is tolerating treatment without any adverse drug reactions at this time. Tobacco Use In Past 30 Days: No Tobacco Past 30 Days Alcohol Use: Monthly or Less Hospital Course Patient's hospital course was uneventful, his initial reluctance take medication resolve quickly. We have had family meeting with his and his father counselors, that went pretty well he showed some mild insight into accepting responsibility for his behaviors leading to the Wetzel act and this hospitalization. Patient showing compliance with his medications. Showing increased insight and processing. He has been consistently denying suicidal ideation intent or plan. We'll discuss this with the patient's today she feels safe with him coming home today with his willingness to have psychiatric follow-up medication compliance, and counseling.We'll be discharged today to his family with Rx 1 month to follow-up with psychiatric services in the [place] area Results Blood Pressure 208 / 97 Vital Signs Date Time Temp Pulse Resp B/P (MAP) Pulse Ox O2 Delivery O2 Flow Rate FiO2 10/17/17 05:57 98.0 73 17 208/97 (134) 97 Please see lab results from [facility] hospitalization and assessment Summary of Procedures Patient has nocturnal peritoneal dialysis Pending results at discharge: No Medications # of Antipsychotic meds at D/C: 0 Approp Antipsych med options 1 - Minimum of three failed multiple trials of monotherapy. 2 - Documented plan to taper to monotherapy due to previous use of multiple meds OR cross-taper in progress at D/C. 3 - Documentation of augmentation of Clozapine. 4 - Justification other than those listed in allowable values 1-3, document here : Discharge Discharge Date: Oct 17, 2017 Discharge Diagnosis: (1) Severe major depression, single episode, without psychotic features Diagnosis: Principal ICD Code: F32.2 - Major depressive disorder, single episode, severe without psychotic features Pt Condition on Discharge: Stable Discharge Disposition: Discharge Home Discharge Instructions Diet Instructions: As Tolerated, No Restrictions Activities you can perform: Regular-No Restrictions Scheduled Appointment: follow-up mental health services in the [facility] Discharge Time > 30 minutes Mental Status Examination Appearance: Appropriate Consciousness: Alert Orientation: x4 Motor Activity: Normal gait Speech: Unremarkable Language: Adequate Fund of Knowledge: Adequate Attention and Concentration: Adequate Memory: Unremarkable Mood: Sad, Oppositional Affect: Other (decreased range increase intensity, guarded) Thought Process & Associations: Intact, Linear Thought Content: Appropriate Hallucination Type: None Delusion Type: None Suicidal Ideation: Yes (denies at this time) Suicidal Plan: No Suicidal Intention: No (denies at this time) Homicidal Ideation: No Homicidal Plan: No Homicidal Intention: No Insight: Fair Judgment: Impulsive Discharge/Advance Care Plan Health Problems: (1) Severe major depression, single episode, without psychotic features Goals to promote your health * To prevent worsening of your condition and complications * To maintain your health at the optimal level Directions to meet your goals Take your medications as prescribed Follow your dietary instruction Follow activity as directed Keep your appointments as scheduled Take your immunizations and boosters as scheduled If your symptoms worsen call your PCP, if no PCP go to Urgent Care Center or Emergency Room For 03/02 questions related to your inpatient stay or results of tests pending at discharge, please contact Dr. Vincenzo Boyd at Smoking is Dangerous to Your Health. Avoid second hand smoking Vincenzo Boyd MD Oct 17, 2017 11:30
[2017-10-17] MEDS ORDERED: cloNIDine HCL 0.1 MG TAB PO PRN (12:00)
[2017-10-17] MEDS: hydrALAZINE HCL 25 MG TAB PO SCH ×2 (13:00→18:00)
== END 2017-10-17 19:45 | disposition home or self-care (01) | DRG 885 ==
LOC: H4EA 14:04
PROVIDERS: ADMIT Psychiatry & Neurology Psychiatry; ATTEND Psychiatry & Neurology Psychiatry
PROC: 3E1M39Z Irrigation of Peritoneal Cavity using Dialysate, Percutaneous Approach (ICD-10-PCS; principal; 2017-10-15)
DX: F32.2 Major depressive disorder, single episode, severe without psychotic features (principal); I12.0 Hypertensive chronic kidney disease with stage 5 chronic kidney disease or end stage renal disease; N18.6 End stage renal disease; E11.22 Type 2 diabetes mellitus with diabetic chronic kidney disease; Z99.2 Dependence on renal dialysis; Z82.49 Family history of ischemic heart disease and other diseases of the circulatory system; Z83.3 Family history of diabetes mellitus; Z81.8 Family history of other mental and behavioral disorders
CPT/HCPCS: 90935